=== PATIENT | female | born 1975 | race Caucasian/White ===

== ENCOUNTER → 2018-10-12 | Outpatient (CLI) | payer BC ==
[~2018-10-12] MED LIST: AMOX-355 PO; ESCT10T PO; HYDR1TAB PO; PRD20T PO; YAZ PO
--- NOTE | 2018-10-13 08:56 | Diagnostic Imaging Report ---
INDICATION: Routine screening. COMPARISON: 08/03/2017. TECHNIQUE: 2D and 3D bilateral screening mammography was performed with CAD. FINDINGS: Both breasts are heterogeneously dense, limiting the sensitivity of mammography. There is an area of density in the inferior medial aspect of the right breast at posterior depth which appears more prominent than on the prior study. This may represent superimposed tissue but additional views are recommended. The left breast is unremarkable. No suspicious microcalcifications are seen. The axillae are unremarkable. IMPRESSION: Right breast density. Additional views are recommended for further evaluation. ACR BI-RADS Category 0: Incomplete. (Needs additional imaging evaluation). Result letter will be mailed to the patient. Note: At least 10% of breast cancer is not imaged by mammography. Dictated by: Dictated on workstation # [id number]
== END ==
LOC: RAD 10:25
PROVIDERS: ATTEND Nurse Practitioner Primary Care
DX: Z12.31 Encounter for screening mammogram for malignant neoplasm of breast (principal)
CPT/HCPCS: 77067

== ENCOUNTER → 2018-10-26 | Outpatient (CLI) | payer BC ==
--- NOTE | 2018-10-26 18:57 | Diagnostic Imaging Report ---
INDICATION: Right breast density. Patient presents for additional views. COMPARISON: Correlation is made with recent screening study from 10/12/2018. TECHNIQUE: Unilateral right 2D and 3D diagnostic mammography was performed including spot compression CC and ML views as well as conventional 90 degree lateral view. The current study was also evaluated with a Computer Aided Detection (CAD) system. FINDINGS: Additional views fail to demonstrate a discrete mass. Area of density in the lower-inner right breast shows normal dispersion and most likely represents superimposed tissue. No suspicious calcifications are seen. IMPRESSION: Additional views fail to demonstrate a discrete mass. The patient may return to routine annual screening mammography. ACR BI-RADS Category 1: Negative. Result letter will be mailed to the patient. Note: At least 10% of breast cancer is not imaged by mammography. Dictated by: Dictated on workstation # [id number]
== END ==
LOC: RAD 08:15
PROVIDERS: ATTEND Nurse Practitioner Primary Care
DX: R92.2 Inconclusive mammogram (principal)

== ENCOUNTER 2019-12-29 11:38 | Emergency (ER) | payer BC, OTHER ==
[~2019-12-29] VITALS: Ht 165 cm; Wt 70.0 kg
--- OUTSIDE RECORDS SUMMARY | 2019-12-29 11:43 | XMS REPORT ---
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 4 92663794 Problem Menopausal vasomotor syndrome N95.1 Active 304222690 Problem Seasonal allergic rhinitis due to pollen J30.1 Active 69042552 Problem Mixed stress and urge urinary incontinence N39.46 Active 734928214 ALLERGIES No Information ENCOUNTERS Encounter Location Date Diagnosis [facility] [address] [id number] Feb, [facility] [address] [address] Jan, [facility] [address] [address] December, [facility] [address] [place] [id number] [place] [address] [phone] December, Dental examination Z01.20 [facility] [address] [place] [id number] [place] [address] December, 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 ; R ecurrent UTI N39.0 and Menopausal vasomotor syndrome N95.1 [facility] [address] [address] Nov, [facility] [address] [place] [id number] [place] [phone] Nov, Folliculitis L73.9 and Acute right otitis media H66.91 [facility] [address] [place] [id number] [address] [place] [phone] 29 Oct, 2018 [place] [address] [address] [facility] [id number] [place] [address] 18 Oct, 2018 Abnormal mammogram R92.8 [place] [address] [address] [facility] [id number] [address] [place] [phone] 15 Oct, 2018 Abnormal mammogram R92.8 [place] [address] [place] [id number] [place] [address] 14 Oct, 2018 [place] [address] [facility] [id number] [address] [place] [phone] Oct, Screening for STDs (sexually transmitted diseases) Z11.3 and Screening for breast cancer Z12.[address] [facility] [address] [address] Aug, Acute non-recurrent pansinus itis J01.[address] [facility] [place] [address] [address] Jun, [facility] [address] [address] Jun, Dysuria R30.0 ; Urinary trac t infection without hematuria, site unspecified N39.0 and Bronchitis J40 [place] [id number] [place] [phone] Jun, Acute vaginitis N76.0 ; Mode rate episode of recurrent major depressive disorder F33.1 and Seasonal allergic rhinitis due to pollen J30.1 [place] [address] [address] [facility] [id number] [address] [place] [address] May, Exposure to herpes simplex v irus (HSV) Z20.828 [facility] [place] [address] [address] [facility] [id number] [address] [place] [address] May, Exposure to herpes simplex v irus (HSV) Z20.828 and Dysuria R30.0 [facility] [place] [address] [address] Apr, Folliculitis L73.9 [place] [address] [address] Feb, Moderate episode of recurren t major depressive disorder F33.1 and Seasonal allergic rhinitis due to pollen J30.1 [facility] [place] [address] [address] December, Acute swimmer''s ear of both sides H60.333 [place] [address] [address] Nov, [place] [address] [address] Nov, Mixed stress and urge urinar y incontinence N39.46 [place] [address] [address] Nov, Moderate episode of recurren t major depressive disorder F33.1 ; Seasonal allergic rhinitis due to pollen J30.1 ; Overweight (BMI 25.0-29.9) E66.3 and Fatigue, unspecified type R53.83 [place] [address] [address] Nov, Moderate episode of recurren t major depressive disorder F33.1 ; Acute non-recurrent maxillary sinusitis J01.00 ; Fatigue, unspecified type R53.83 and Dysuria R30.0 [place] [address] [address] Oct, [place] [address] [address] Sep, Moderate episode of recurren t major depressive disorder F33.1 ; Seasonal allergic rhinitis due to pollen J30.1 and Overweight (BMI 25.0-29.9) E66.[address] [facility] [place] [address] [address] Aug, Myalgia M79.1 [facility] [address] [address] Jul, Moderate episode of recurren t major depressive disorder F33.1 ; Acute non-recurrent frontal sinusitis J01.10 and Overweight (BMI 25.0-29.9) E66.[address] [address] Jun, Acute cystitis with hematuri a N30.01 [place] [address] [address] Jun, [address] [address] Jun, Acute cystitis with hematuri a N30.01 [facility] [address] [id number] Jun, Dental examination Z01.[address] [address] May, Candidiasis of female genita leena B37.3 [facility] [address] [address] May, Acute cystitis N30.00 [facility] [address] [address] May, Dysuria R30.0 [facility] [address] [place] [address] Mar, Acute cystitis without hemat uria N30.00 and Dysuria R30.0 [facility] [address] [address] Feb, Right arm pain M79.601 [facility] [address] [address] December, Acute nasopharyngitis (commo n cold) J00 [facility] [address] [id number] [address] [place] [phone] Nov, Dental examination Z01.20 [facility] [address] [id number] [address] [place] [phone] Sep, Encounter for dental examina tion Z01.20 [facility] [address] [facility] [id number] [address] [place] [address] Jun, Lower abdominal pain R10.30 and Screening for STD sexually transmitted disease Z11.3 [facility] [address] [place] [id number] [place] [address] May, [facility] [address] [facility] [id number] [place] [address] May, Dysuria R30.0 ; Acute non-re current frontal sinusitis J01.10 and Acute cystitis with hematuria N30.01 [facility] [address] [id number] [address] [place] [phone] Mar, Dental examination Z01.20 [facility] [address] [facility] [id number] [address] [place] [phone] Oct, Encounter for dental examina tion Z01.20 IMMUNIZATIONS No Known Immunizations SOCIAL HISTORY Never Assessed REASON FOR VISIT Requesting medication PLAN OF CARE VITAL SIGNS MEDICATIONS Medication Instructions Dosage Frequency Start Date End Date Duration S tatus Valacyclovir HCl 500 mg Orally Once a day 1 tablet 24h Oct, 90 days Active RESULTS No Results PROCEDURES No Known procedures INSTRUCTIONS MEDICATIONS ADMINISTERED No Known Medications MEDICAL (GENERAL) HISTORY Type Description Date Medical History HTN Medical History folliculitis Medical History Moderate episode of recurrent major depr essive disorder Medical History Seasonal allergic rhinitis due to pollen Medical History Mixed stress and urge urinary incontinen ce Medical History HSV-2 seropositive Surgical History Caesarean Surgical History Hysterectomy 2008 Surgical History Cholecystectomy 2011 Surgical History Sinus 2013 Hospitalization History Hospitalization for surgery only
--- OUTSIDE RECORDS SUMMARY | 2019-12-29 11:43 | XMS REPORT ---
Author Author Paula HOU Organization [facility] Address [address] [place] [address] Care Team Providers Care Basketball Coach Name Role Phone BOBBY HOU Unavailable PROBLEMS Type Condition ICD9-CM Code ZXC22-EU Code Onset Dates Condition S tatus SNOMED Code Problem Mixed stress and urge urinary incontinence N39.46 Active 376984798 Problem Seasonal allergic rhinitis due to pollen J30.1 Active 44233898 Problem Moderate episode of recurrent major depressive disorder F33.1 Active 409486751 ALLERGIES Substance Reaction Event Type Date Status Hydrocodone-Acetaminophen itching Drug Allergy December, Ac tive Fluarix Unknown Drug Allergy December, Active ENCOUNTERS Encounter Location Date Diagnosis [facility] [address] [place] [id number] [place] [address] Feb, Moderate episode of recurren t major depressive disorder F33.1 and Seasonal allergic rhinitis due to pollen J30.1 [facility] [address] [place] [id number] [place] [address] December, Acute swimmer''s ear of both sides H60.333 [place] [address] [address] [place] [id number] [place] [address] Nov, [facility] [address] [place] [id number] [place] [address] Nov, Mixed stress and urge urinar y incontinence N39.46 [place] [address] [address] Nov, Moderate episode of recurren t major depressive disorder F33.1 ; Seasonal allergic rhinitis due to pollen J30.1 ; Overweight (BMI 25.0-29.9) E66.3 and Fatigue, unspecified type R53.83 [place] [address] [address] Nov, Moderate episode of recurren t major depressive disorder F33.1 ; Acute non-recurrent maxillary sinusitis J01.00 ; Fatigue, unspecified type R53.83 and Dysuria R30.0 [place] [address] [address] [place] [id number] [place] [address] Oct, [place] [address] [address] Sep, Moderate episode of recurren t major depressive disorder F33.1 ; Seasonal allergic rhinitis due to pollen J30.1 and Overweight (BMI 25.0-29.9) E66.3 [facility] [place] [address] [address] Aug, Myalgia M79.1 [place] [address] [address] Jul, Moderate episode of recurren t major depressive disorder F33.1 ; Acute non-recurrent frontal sinusitis J01.10 and Overweight (BMI 25.0-29.9) E66.3 [place] [address] [address] 21 Jun, 2017 Acute cystitis with hematuri a N30.01 [place] [address] [address] Jun, [place] [address] [address] 13 Jun, 2017 Acute cystitis with hematuri a N30.01 [facility] [address] [id number] [address] [place] [address] [id number] 08 Jun, 2017 Dental examination Z01.20 [place] [address] [address] [place] [id number] [address] [place] [phone] 17 May, 2017 Candidiasis of female genita leena B37.3 [facility] [address] [place] [address] May, Acute cystitis N30.00 [facility] [address] [place], [place] [address] [place] [address] May, Dysuria R30.0 [facility] [address] [place], [place] [address] [place] [address] Mar, Acute cystitis without hemat uria N30.00 and Dysuria R30.0 [facility] [address] [place] [address] [place] [address] Feb, Right arm pain M79.601 [facility] [address] [place] [address] [place] [address] December, Acute nasopharyngitis (commo n cold) J00 [facility] [id number] [place] [address] [phone] Nov, Dental examination Z01.20 [facility] [address] [place] [phone] Sep, Encounter for dental examina tion Z01.20 [facility] [address] [place] [phone] Jun, Lower abdominal pain R10.30 and Screening for STD sexually transmitted disease Z11.3 [facility] [address] [place] [phone] May, [facility] [address] [place] [address] May, Dysuria R30.0 ; Acute non-re current frontal sinusitis J01.10 and Acute cystitis with hematuria N30.01 [facility] [address] [id number] [address] [place] [phone] Mar, Dental examination Z01.20 [facility] [address] [id number] [address] [place] [address] [id number] Oct, Encounter for dental examina tion Z01.20 IMMUNIZATIONS No Known Immunizations SOCIAL HISTORY Never Assessed REASON FOR VISIT ear pain bilaterally for 4 days...worse the past 2 days. [place] swimming. [email or web address] PLAN OF CARE Activity Details Follow Up prn Reason: VITAL SIGNS Height 66 in 2017-12-31 Weight 161.6 lbs 2017-12-31 Temperature 98.4 degrees Fahrenheit 2017-12-31 Heart Rate 66 bpm 2017-12-31 Respiratory Rate 20 2017-12-31 BMI 26.08 kg/m2 2017-12-31 Blood pressure systolic 130 mmHg 2017-12-31 Blood pressure diastolic 80 mmHg 2017-12-31 MEDICATIONS Medication Instructions Dosage Frequency Start Date End Date Duration S tatus Probiotic Daily Active Cortisporin 3.5-52272-9 Otic Three times a day 4 drops into affecte d ear 8h December, 07 days Active Fexofenadine HCl 60 MG Orally Twice a day 1 tablet as needed 12h Not-Taking Multi Complete Active Estradiol 2 MG Orally Once a day 1 tablet 24h Active Fluoxetine 10 mg Orally Once a day 1 capsule in the morning 24h Nov, 30 day(s) Active Cyclobenzaprine HCl 5 mg Orally Three times a day PRn 1-2 tablet as needed Aug, Not-Taking Spironolactone 25 MG Orally Twice a day 1 tablet 12h Jul, 90 days Active RESULTS No Results PROCEDURES No Known procedures INSTRUCTIONS MEDICATIONS ADMINISTERED No Known Medications MEDICAL (GENERAL) HISTORY Type Description Date Medical History HTN Surgical History Caesarean Surgical History Hysterectomy 2008 Surgical History Cholecystectomy 2010 Surgical History Sinus 2012 Hospitalization History Hospitalization for surgery only
--- OUTSIDE RECORDS SUMMARY | 2019-12-29 11:43 | XMS REPORT ---
Author Author Paula MUNIZ Organization [facility] Address [address] [place] [address] Care Team Providers Care Hardwood Floor Finisher Name Role Phone OVIDIO MUNIZ Unavailable PROBLEMS Type Condition ICD9-CM Code FNL19-KL Code Onset Dates Condition S tatus SNOMED Code Problem Mixed stress and urge urinary incontinence N39.46 Active 331903494 Problem Seasonal allergic rhinitis due to pollen J30.1 Active 71528848 Problem Moderate episode of recurrent major depressive disorder F33.1 Active 047170955 ALLERGIES Substance Reaction Event Type Date Status Hydrocodone-Acetaminophen itching Drug Allergy Apr, Ac tive Fluarix Unknown Drug Allergy Apr, Active ENCOUNTERS Encounter Location Date Diagnosis [facility] [address] [place] [id number] [place] [address] Apr, Folliculitis L73.9 [facility] [address] [place] [id number] [address] [place] [address] Feb, Moderate episode of recurren t major depressive disorder F33.1 and Seasonal allergic rhinitis due to pollen J30.1 [facility] [address] [place] [id number] [place] [address] December, Acute swimmer''s ear of both sides H60.333 [facility] [address] [facility] [id number] [address] [place] [address] Nov, [facility] [address] [place] [id number] [place] [address] Nov, Mixed stress and urge urinar y incontinence N39.46 [facility] [address] [place] [id number] [address] [place] [address] Nov, Moderate episode of recurren t major depressive disorder F33.1 ; Seasonal allergic rhinitis due to pollen J30.1 ; Overweight (BMI 25.0-29.9) E66.3 and Fatigue, unspecified type R53.83 [facility] [address] [address] Nov, Moderate episode of recurren t major depressive disorder F33.1 ; Acute non-recurrent maxillary sinusitis J01.00 ; Fatigue, unspecified type R53.83 and Dysuria R30.0 [facility] [address] [address] Oct, [facility] [address] [address] Sep, Moderate episode of recurren t major depressive disorder F33.1 ; Seasonal allergic rhinitis due to pollen J30.1 and Overweight (BMI 25.0-29.9) E66.3 [facility] [address] [place] [id number] [place] [address] Aug, Myalgia M79.1 [facility] [address] [address] Jul, Moderate episode of recurren t major depressive disorder F33.1 ; Acute non-recurrent frontal sinusitis J01.10 and Overweight (BMI 25.0-29.9) E66.3 [place] [address] [address] Jun, Acute cystitis with hematuri a N30.01 [facility] [address] [place] [id number] [place] [address] Jun, [facility] [address] [place] [id number] [place] [address] 13 Jun, 2017 Acute cystitis with hematuri a N30.01 [facility] [address] [id number] [address] [place] [address] [id number] 08 Jun, 2017 Dental examination Z01.20 [facility] [address] [place] [address] [address] May, Candidiasis of female genita leena B37.3 [facility] [address] [place] [address] May, Acute cystitis N30.00 [facility] [address] [place] [address] May, Dysuria R30.0 [facility] [address] [place] [address] Mar, Acute cystitis without hemat uria N30.00 and Dysuria R30.0 [facility] [address] [place] [address] Feb, Right arm pain M79.601 [facility] [address] [place] [address] December, Acute nasopharyngitis (commo n cold) J00 [facility] [address] [id number] Nov, Dental examination Z01.20 [facility] [address] [id number] Sep, Encounter for dental examina tion Z01.20 [facility] [address] [place] [address] Jun, Lower abdominal pain R10.30 and Screening for STD sexually transmitted disease Z11.3 [facility] [address] [place] [phone] May, [facility] [address] [place] [address] May, Dysuria R30.0 ; Acute non-re current frontal sinusitis J01.10 and Acute cystitis with hematuria N30.01 [facility] [address] [place] [address] [id number] Mar, Dental examination Z01.20 [facility] [address] [id number] [address] [place] [phone] Oct, Encounter for dental examina tion Z01.20 IMMUNIZATIONS No Known Immunizations SOCIAL HISTORY Never Assessed REASON FOR VISIT bumps on head-patient has been diagnosed with folliculitis and stopped taking he r medicine and is having an outbreak on the back of her head. She usually takes amoxiclave and would like to get some.--ALDAIR Miramontes PLAN OF CARE Activity Details Follow Up 04/28 wIleana Calvo Reason :chronic med refills VITAL SIGNS Height 66 in 2018-04-25 Weight 153 lbs 2018-04-25 Temperature 99.5 degrees Fahrenheit 2018-04-25 Heart Rate 68 bpm 2018-04-25 Respiratory Rate 20 2018-04-25 BMI 24.69 kg/m2 2018-04-25 Blood pressure systolic 98 mmHg 2018-04-25 Blood pressure diastolic 70 mmHg 2018-04-25 MEDICATIONS Medication Instructions Dosage Frequency Start Date End Date Duration S tatus Probiotic Daily Active Amoxicillin-Pot Clavulanate 875-125 MG Orally every 12 hrs 1 tablet 12h Apr, Apr, 10 day(s) Active Fluoxetine 10 mg Orally Once a day 1 capsule in the morning 24h Nov, 90 days Active Spironolactone 25 MG Orally Twice a day 1 tablet 12h Jul, 90 days Active Multi Complete Active Fexofenadine HCl 60 MG Orally Twice a day 1 tablet as needed 12h Active Estradiol 2 MG Orally Once a day 1 tablet 24h Active RESULTS No Results PROCEDURES No Known procedures INSTRUCTIONS MEDICATIONS ADMINISTERED No Known Medications MEDICAL (GENERAL) HISTORY Type Description Date Medical History HTN Medical History folliculitis Surgical History Caesarean Surgical History Hysterectomy 2008 Surgical History Cholecystectomy 2010 Surgical History Sinus 2013 Hospitalization History Hospitalization for surgery only
--- OUTSIDE RECORDS SUMMARY | 2019-12-29 11:43 | XMS REPORT ---
Author Author Puala QUARLES Organization [facility] Address [address] [place] [address] Care Team Providers Care Director Of Front Office Name Role Phone WILLAM PARVIN Unavailable PROBLEMS Type Condition ICD9-CM Code CFE61-CA Code Onset Dates Condition S tatus SNOMED Code Problem Mixed stress and urge urinary incontinence N39.46 Active 067297870 Problem Seasonal allergic rhinitis due to pollen J30.1 Active 97867006 Problem Moderate episode of recurrent major depressive disorder F33.1 Active 768504616 ALLERGIES Substance Reaction Event Type Date Status Hydrocodone-Acetaminophen itching Drug Allergy Feb, Ac tive Fluarix Unknown Drug Allergy Feb, Active ENCOUNTERS Encounter Location Date Diagnosis [place] [address] [place] [id number] [address] [place] [address] Feb, Moderate episode of recurren t major depressive disorder F33.1 and Seasonal allergic rhinitis due to pollen J30.1 [facility] [address] [place] [id number] [address] [place] [phone] December, Acute swimmer''s ear of both sides H60.333 [place] [address] [place] [id number] [address] [place] [address] Nov, [facility] [address] [place] [id number] [address] [place] [address] Nov, Mixed stress and urge urinar y incontinence N39.46 [place] [address] [place] [id number] [address] [place] [address] Nov, Moderate episode of recurren t major depressive disorder F33.1 ; Seasonal allergic rhinitis due to pollen J30.1 ; Overweight (BMI 25.0-29.9) E66.3 and Fatigue, unspecified type R53.83 [place] [address] [place] [id number] [place] [address] Nov, Moderate episode of recurren t major depressive disorder F33.1 ; Acute non-recurrent maxillary sinusitis J01.00 ; Fatigue, unspecified type R53.83 and Dysuria R30.0 [place] [address] [place] [id number] [place] [address] Oct, [place] [address] [address] Sep, Moderate episode of recurren t major depressive disorder F33.1 ; Seasonal allergic rhinitis due to pollen J30.1 and Overweight (BMI 25.0-29.9) E66.3 [facility] [place] [address] [address] Aug, Myalgia M79.1 [place] [address] [address] Jul, Moderate episode of recurren t major depressive disorder F33.1 ; Acute non-recurrent frontal sinusitis J01.10 and Overweight (BMI 25.0-29.9) E66.3 [place] [address] [address] 21 Jun, 2017 Acute cystitis with hematuri a N30.01 [place] [address] [place] [id number] [place] [address] Jun, [place] [address] [address] 13 Jun, 2017 Acute cystitis with hematuri a N30.01 [facility] [address] [id number] [address] [place] [address] [id number] 08 Jun, 2017 Dental examination Z01.20 [place] [address] [place] [id number] [address] [place] [address] 17 May, 2017 Candidiasis of female genita leena B37.3 [facility] [address] [place] [id number] [place] [address] May, Acute cystitis N30.00 [facility] [address] [place] [address] May, Dysuria R30.0 [facility] [address] [place], [place] [address] [place] [address] Mar, Acute cystitis without hemat uria N30.00 and Dysuria R30.0 [facility] [address] [place], [place] [address] [place] [address] Feb, Right arm pain M79.601 [facility] [address] [place] [place] [address] December, Acute nasopharyngitis (commo n cold) J00 [facility] [address] [place] [address] [phone] Nov, Dental examination Z01.20 [facility] [address] [id number] Sep, Encounter for dental examina tion Z01.20 [facility] [address] [place] [place] [phone] Jun, Lower abdominal pain R10.30 and Screening for STD sexually transmitted disease Z11.3 [facility] [address] [place] [place] [address] May, [facility] [address] [place] [place] [address] May, Dysuria R30.0 ; Acute non-re current frontal sinusitis J01.10 and Acute cystitis with hematuria N30.01 [facility] [address] [id number] [address] [place] [address] [phone] Mar, Dental examination Z01.20 [facility] [address] [id number] [address] [place] [address] [phone] Oct, Encounter for dental examina tion Z01.20 IMMUNIZATIONS No Known Immunizations SOCIAL HISTORY Never Assessed REASON FOR VISIT Depression fu -- my[facility]le [facility]odge PLAN OF CARE Activity Details Follow Up 6 Months, prn Reason:CHM/Dep ression VITAL SIGNS Height 66 in 2018-02-17 Weight 158.0 lbs 2018-02-17 Temperature 98.7 degrees Fahrenheit 2018-02-17 Heart Rate 70 bpm 2018-02-17 Respiratory Rate 18 2018-02-17 BMI 25.50 kg/m2 2018-02-17 Blood pressure systolic 120 mmHg 2018-02-17 Blood pressure diastolic 76 mmHg 2018-02-17 MEDICATIONS Medication Instructions Dosage Frequency Start Date End Date Duration S tatus Estradiol 2 MG Orally Once a day 1 tablet 24h Active Multi Complete Active Spironolactone 25 MG Orally Twice a day 1 tablet 12h Jul, 90 days Active Fluoxetine 10 mg Orally Once a day 1 capsule in the morning 24h Nov, 90 days Active Fexofenadine HCl 60 MG Orally Twice a day 1 tablet as needed 12h Active Probiotic Daily Active RESULTS No Results PROCEDURES No Known procedures INSTRUCTIONS MEDICATIONS ADMINISTERED No Known Medications MEDICAL (GENERAL) HISTORY Type Description Date Medical History HTN Surgical History Caesarean Surgical History Hysterectomy 2008 Surgical History Cholecystectomy 2010 Surgical History Sinus 2013 Hospitalization History Hospitalization for surgery only
--- OUTSIDE RECORDS SUMMARY | 2019-12-29 11:43 | XMS REPORT ---
Author Author Paula GUSTAFSON Organization [facility] Address [address] [place] [address] Care Team Providers Care Desulphuring Operator Name Role Phone SJ DANILO Unavailable PROBLEMS Type Condition ICD9-CM Code JGU53-KZ Code Onset Dates Condition S tatus SNOMED Code Problem Mixed stress and urge urinary incontinence N39.46 Active 808940737 Problem Seasonal allergic rhinitis due to pollen J30.1 Active 51490354 Problem Moderate episode of recurrent major depressive disorder F33.1 Active 916718038 ALLERGIES Substance Reaction Event Type Date Status Hydrocodone-Acetaminophen itching Drug Allergy Jun, Ac tive Fluarix Unknown Drug Allergy Jun, Active ENCOUNTERS Encounter Location Date Diagnosis [facility] [address] [address] Jun, [facility] [place] [address] [address] 18 Jun, 2018 Dysuria R30.0 ; Urinary trac t infection without hematuria, site unspecified N39.0 and Bronchitis J40 [address] [address] 14 Jun, 2018 Acute vaginitis N76.0 ; Mode rate episode of recurrent major depressive disorder F33.1 and Seasonal allergic rhinitis due to pollen J30.1 [facility] [address] [place] [id number] [address] [place] [phone] May, Exposure to herpes simplex v irus (HSV) Z20.828 [facility] [address] [place] [id number] [address] [place] [phone] May, Exposure to herpes simplex v irus (HSV) Z20.828 and Dysuria R30.0 [facility] [address] [address] Apr, Folliculitis L73.9 [place] [address] [address] Feb, Moderate episode of recurren t major depressive disorder F33.1 and Seasonal allergic rhinitis due to pollen J30.1 [facility] [place] [address] [address] December, Acute swimmer''s ear of both sides H60.333 [place] [address] [address] Nov, [place] [address] [address] Nov, Mixed stress and urge urinar y incontinence N39.46 [place] [address] [address] Nov, Moderate episode of recurren t major depressive disorder F33.1 ; Seasonal allergic rhinitis due to pollen J30.1 ; Overweight (BMI 25.0-29.9) E66.3 and Fatigue, unspecified type R53.83 [place] [address] [address] Nov, Moderate episode of recurren t major depressive disorder F33.1 ; Acute non-recurrent maxillary sinusitis J01.00 ; Fatigue, unspecified type R53.83 and Dysuria R30.0 [place] [address] [address] Oct, [place] [address] [address] Sep, Moderate episode of recurren t major depressive disorder F33.1 ; Seasonal allergic rhinitis due to pollen J30.1 and Overweight (BMI 25.0-29.9) E66.3 [facility] IN [facility] [address] [address] Aug, Myalgia M79.1 [place] [address] [address] Jul, Moderate episode of recurren t major depressive disorder F33.1 ; Acute non-recurrent frontal sinusitis J01.10 and Overweight (BMI 25.0-29.9) E66.3 [place] [address] [address] Jun, Acute cystitis with hematuri a N30.01 [place] [address] [address] Jun, [address] [address] Jun, Acute cystitis with hematuri a N30.01 [facility] [address] [id number] Jun, 2017 Dental examination Z01.20 [place] [address] [address] 17 May, 2017 Candidiasis of female genita leena B37.3 [facility] [address] [place] [address] May, Acute cystitis N30.00 [facility] [address] [place] [address] May, Dysuria R30.0 [facility] [address] [place] [address] Mar, Acute cystitis without hemat uria N30.00 and Dysuria R30.0 [facility] [address] [place] [address] Feb, Right arm pain M79.601 [facility] [address] [place] [address] December, Acute nasopharyngitis (commo n cold) J00 [facility] [address] [id number] [address] [place] [address] [phone] Nov, Dental examination Z01.20 [facility] [address] [id number] [address] [place] [address] [phone] Sep, Encounter for dental examina tion Z01.20 [facility] [address] [facility] [id number] [address] [place] [phone] Jun, Lower abdominal pain R10.30 and Screening for STD sexually transmitted disease Z11.3 [facility] [address] [place], [place] [address] [place] [phone] May, [facility] [address] [place] [id number] [place] [phone] May, Dysuria R30.0 ; Acute non-re current frontal sinusitis J01.10 and Acute cystitis with hematuria N30.01 [facility] [address] [id number] [address] [place] [address] [phone] Mar, Dental examination Z01.20 [facility] 924 [address] [facility] [id number] [address] [place] [address] [phone] Oct, Encounter for dental examina tion Z01.20 IMMUNIZATIONS No Known Immunizations SOCIAL HISTORY Never Assessed REASON FOR VISIT sinus infection/uti symptoms started 3 days ago JStrasserRN PLAN OF CARE Activity Details Follow Up prn Reason: VITAL SIGNS Height 66 in 2018-06-25 Weight 150.0 lbs 2018-06-25 Temperature 98.8 degrees Fahrenheit 2018-06-25 Heart Rate 80 bpm 2018-06-25 Respiratory Rate 20 2018-06-25 BMI 24.21 kg/m2 2018-06-25 Blood pressure systolic 116 mmHg 2018-06-25 Blood pressure diastolic 74 mmHg 2018-06-25 MEDICATIONS Medication Instructions Dosage Frequency Start Date End Date Duration Kehinde masters Spironolactone 25 MG Orally Twice a day 1 tablet 12h 22 Jul, 2018 90 days Active Fluconazole 150 MG Orally every 72hr 1 tablet Jun, 6 days Active Estradiol 2 MG Orally Once a day 1 tablet 24h Active Fluoxetine 10 mg Orally Once a day 1 capsule in the morning 24h Nov, Active Fluconazole 150 MG Orally one time may repeat in 3 days if needed 1 tablet Jun, 2 doses Active Probiotic Daily Active Sulfamethoxazole-Trimethoprim 800-160 MG Orally Twice a day 1 table t 12h Jun, 7 days Active PredniSONE 20 mg Orally Once a day 1 tablet 24h Jun, 5 days Active Multi Complete Active Azo Tabs 95 MG Orally Three times a day 2 tablets after meals 8h 2 day(s) Active Fexofenadine HCl 60 MG Orally Twice a day 1 tablet as needed 12h Active RESULTS No Results PROCEDURES Procedure Date Ordered Result Body Site URINALYSIS, AUTO, W/O SCOPE Jun 25, 2018 URINE CULTURE/COLONY COUNT Jun 25, 2018 INSTRUCTIONS MEDICATIONS ADMINISTERED No Known Medications MEDICAL (GENERAL) HISTORY Type Description Date Medical History HTN Medical History folliculitis Surgical History Caesarean 1998/2001 Surgical History Hysterectomy 2008 Surgical History Cholecystectomy 2010 Surgical History Sinus 2013 Hospitalization History Hospitalization for surgery only
--- OUTSIDE RECORDS SUMMARY | 2019-12-29 11:43 | XMS REPORT ---
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 4 79753334 Problem Menopausal vasomotor syndrome N95.1 Active 739272475 Problem Seasonal allergic rhinitis due to pollen J30.1 Active 73341787 Problem Mixed stress and urge urinary incontinence N39.46 Active 810669035 ALLERGIES No Information ENCOUNTERS Encounter Location Date Diagnosis [facility] [address] [address] Jan, [facility] [address] [address] December, [facility] [address] [place] [id number] [address] [place] [address] [phone] December, Dental examination Z01.20 [facility] [address] [address] December, 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 ; R ecurrent UTI N39.0 and Menopausal vasomotor syndrome N95.1 [facility] [address] [place] [id number] [address] [place] [address] Nov, [facility] [address] [address] Nov, Folliculitis L73.9 and Acute right otitis media H66.91 [facility] [address] [place] [id number] [address] [place] [address] Oct, [facility] [address] [address] 18 Oct, 2018 Abnormal mammogram R92.8 [place] [address] [address] 15 Oct, 2018 Abnormal mammogram R92.8 [place] [address] [address] 14 Oct, 2018 [place] [address] [address] Oct, Screening for STDs (sexually transmitted diseases) Z11.3 and Screening for breast cancer Z12.31 [facility] [address] [address] Aug, Acute non-recurrent pansinus itis J01.[address] [address] Jun, [facility] [place] [address] [address] Jun, Dysuria R30.0 ; Urinary trac t infection without hematuria, site unspecified N39.0 and Bronchitis J40 [place] [address] [address] 14 Jun, 2018 Acute vaginitis N76.0 ; Mode rate episode of recurrent major depressive disorder F33.1 and Seasonal allergic rhinitis due to pollen J30.1 [place] [address] [address] May, Exposure to herpes simplex v irus (HSV) Z20.828 [facility] [place] [address] [address] May, Exposure to herpes simplex v irus (HSV) Z20.828 and Dysuria R30.0 [facility] [place] [address] [address] Apr, Folliculitis L73.9 [place] [address] [facility] [id number] [address] [place] [address] Feb, Moderate episode of recurren t major depressive disorder F33.1 and Seasonal allergic rhinitis due to pollen J30.1 [facility] [address] [facility] [id number] [address] [place] [address] December, Acute swimmer''s ear of both sides H60.333 [place] [address] [place] [id number] [address] [place] [address] Nov, [place] [address] [place] [id number] [place] [address] Nov, Mixed stress and urge urinar y incontinence N39.46 [place] [address] [place] [id number] [address] [place] [address] Nov, Moderate episode of recurren t major depressive disorder F33.1 ; Seasonal allergic rhinitis due to pollen J30.1 ; Overweight (BMI 25.0-29.9) E66.3 and Fatigue, unspecified type R53.83 [place] [address] [place] [id number] [address] [place] [address] Nov, Moderate episode of recurren t major depressive disorder F33.1 ; Acute non-recurrent maxillary sinusitis J01.00 ; Fatigue, unspecified type R53.83 and Dysuria R30.0 [place] [address] [place] [id number] [address] [place] [phone] Oct, [place] [address] [facility] [id number] [address] [place] [phone] Sep, Moderate episode of recurren t major depressive disorder F33.1 ; Seasonal allergic rhinitis due to pollen J30.1 and Overweight (BMI 25.0-29.9) E66.3 [facility] IN [facility] [address] [facility] [id number] [address] [place] [phone] Aug, Myalgia M79.1 [place] [address] [place] [id number] [address] [place] [address] Jul, Moderate episode of recurren t major depressive disorder F33.1 ; Acute non-recurrent frontal sinusitis J01.10 and Overweight (BMI 25.0-29.9) E66.3 [facility] [address] [place] [id number] [address] [place] [phone] Jun, Acute cystitis with hematuri a N30.01 [place] [address] [address] Jun, [place] [address] [address] Jun, Acute cystitis with hematuri a N30.01 [facility] [address] [place] [id number] [place] [address] [id number] Jun, 2017 Dental examination Z01.20 [place] [address] [address] May, Candidiasis of female genita leena B37.3 [facility] [address] [place] [id number] [place] [address] May, Acute cystitis N30.00 [facility] [place] [id number] [place] [address] May, Dysuria R30.0 [facility] [address] [place], [place] [address] [place] [address] Mar, Acute cystitis without hemat uria N30.00 and Dysuria R30.0 [facility] [address] [place] [id number] [address] [place] [address] Feb, Right arm pain M79.601 [facility] [address] [place], [place] [id number] [address] [place] [phone] December, Acute nasopharyngitis (commo n cold) J00 [facility] [address] [id number] [address] [place] [address] [phone] Nov, Dental examination Z01.20 [facility] [address] [facility] [id number] [address] [place] [address] [phone] Sep, Encounter for dental examina tion Z01.20 [facility] [address] [facility] [id number] [address] [place] [address] Jun, Lower abdominal pain R10.30 and Screening for STD sexually transmitted disease Z11.3 [facility] [address] [facility] [id number] [address] [place] [phone] May, [facility] [address] [facility] [id number] [address] [place] [address] May, Dysuria R30.0 ; Acute non-re current frontal sinusitis J01.10 and Acute cystitis with hematuria N30.01 [facility] [address] [facility] [id number] [address] [place] [address] [phone] Mar, Dental examination Z01.20 [facility] [address] [facility] [id number] [address] [place] [address] [phone] Oct, Encounter for dental examina tion Z01.20 IMMUNIZATIONS No Known Immunizations SOCIAL HISTORY Never Assessed REASON FOR VISIT Requests return call PLAN OF CARE VITAL SIGNS MEDICATIONS Unknown Medications RESULTS No Results PROCEDURES No Known procedures INSTRUCTIONS MEDICATIONS ADMINISTERED No Known Medications MEDICAL (GENERAL) HISTORY Type Description Date Medical History HTN Medical History folliculitis Medical History Moderate episode of recurrent major depr essive disorder Medical History Seasonal allergic rhinitis due to pollen Medical History Mixed stress and urge urinary incontinen ce Medical History HSV-2 seropositive Surgical History Caesarean 1998/2001 Surgical History Hysterectomy 2008 Surgical History Cholecystectomy 2011 Surgical History Sinus 2013 Hospitalization History Hospitalization for surgery only
--- OUTSIDE RECORDS SUMMARY | 2019-12-29 11:43 | XMS REPORT ---
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 4 90723647 Problem Menopausal vasomotor syndrome N95.1 Active 929759297 Problem Seasonal allergic rhinitis due to pollen J30.1 Active 63861214 Problem Mixed stress and urge urinary incontinence N39.46 Active 297205935 ALLERGIES Substance Reaction Event Type Date Status Hydrocodone-Acetaminophen itching Drug Allergy Oct, Ac tive Fluarix Unknown Drug Allergy Oct, Active ENCOUNTERS Encounter Location Date Diagnosis [facility] [address] [place] [address] December, 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 ; R ecurrent UTI N39.0 and Menopausal vasomotor syndrome N95.1 [facility] [address] [facility] [id number] [address] [place] [address] Nov, [facility] [address] [facility] [id number] [address] [place] [address] Nov, Folliculitis L73.9 and Acute right otitis media H66.91 [facility] [address] [facility] [id number] [address] [place] [address] Oct, [facility] [address] [facility] [id number] [address] [place] [address] Oct, Abnormal mammogram R92.8 [facility] [address] [facility] [id number] [address] [place] [address] Oct, Abnormal mammogram R92.8 [place] [address] [address] 14 Oct, 2018 [place] [address] [address] Oct, Screening for STDs (sexually transmitted diseases) Z11.3 and Screening for breast cancer Z12.31 [facility] [address] [address] Aug, Acute non-recurrent pansinus itis J01.40 [facility] [place] [address] [address] Jun, [facility] [address] [address] Jun, Dysuria R30.0 ; Urinary trac t infection without hematuria, site unspecified N39.0 and Bronchitis J40 [address] [address] Jun, Acute vaginitis N76.0 ; Mode rate episode of recurrent major depressive disorder F33.1 and Seasonal allergic rhinitis due to pollen J30.1 [place] [address] [address] May, Exposure to herpes simplex v irus (HSV) Z20.828 [facility] [place] [address] [address] May, Exposure to herpes simplex v irus (HSV) Z20.828 and Dysuria R30.0 [facility] [place] [address] [address] Apr, Folliculitis L73.9 [place] [address] [address] Feb, Moderate episode of recurren t major depressive disorder F33.1 and Seasonal allergic rhinitis due to pollen J30.1 [facility] [place] [address] [address] December, Acute swimmer''s ear of both sides H60.333 [place] [address] [address] Nov, [place] [address] [address] Nov, Mixed stress and urge urinar y incontinence N39.46 [place] [address] [address] Nov, Moderate episode of recurren t major depressive disorder F33.1 ; Seasonal allergic rhinitis due to pollen J30.1 ; Overweight (BMI 25.0-29.9) E66.3 and Fatigue, unspecified type R53.83 [place] [address] [address] Nov, Moderate episode of recurren t major depressive disorder F33.1 ; Acute non-recurrent maxillary sinusitis J01.00 ; Fatigue, unspecified type R53.83 and Dysuria R30.0 [place] [address] [address] Oct, [place] [address] [address] Sep, Moderate episode of recurren t major depressive disorder F33.1 ; Seasonal allergic rhinitis due to pollen J30.1 and Overweight (BMI 25.0-29.9) E66.3 [facility] [address] [address] Aug, Myalgia M79.1 [place] [address] [address] Jul, Moderate episode of recurren t major depressive disorder F33.1 ; Acute non-recurrent frontal sinusitis J01.10 and Overweight (BMI 25.0-29.9) E66.3 [place] [address] [address] Jun, Acute cystitis with hematuri a N30.01 [facility] [address] [facility] [id number] [address] [place] [address] Jun, [facility] [address] [facility] [id number] [address] [place] [address] Jun, Acute cystitis with hematuri a N30.01 [facility] [address] [facility] [id number] [place] [id number] Jun, Dental examination Z01.20 [facility] [address] [facility] [id number] [address] [place] [address] 17 May, 2017 Candidiasis of female genita leena B37.3 [facility] [address] [place] [id number] [address] [place] [address] May, Acute cystitis N30.00 [facility] [address] [place] [id number] [place] [address] May, Dysuria R30.0 [facility] [address] [place] [id number] [address] [place] [address] Mar, Acute cystitis without hemat uria N30.00 and Dysuria R30.0 [facility] [address] [place] [id number] [address] [place] [address] Feb, Right arm pain M79.601 [facility] [address] [place] [id number] [address] [place] [address] December, Acute nasopharyngitis (commo n cold) J00 [facility] [address] [id number] [address] [place] [address] [id number] Nov, Dental examination Z01.20 [facility] [address] [id number] [address] [place] [phone] Sep, Encounter for dental examina tion Z01.20 [facility] [address] [facility] [id number] [address] [place] [address] Jun, Lower abdominal pain R10.30 and Screening for STD sexually transmitted disease Z11.3 [facility] [address] [facility] [id number] [address] [place] [address] May, [facility] [address] [facility] [id number] [address] [place] [address] May, Dysuria R30.0 ; Acute non-re current frontal sinusitis J01.10 and Acute cystitis with hematuria N30.01 [facility] [address] [facility] [id number] [address] [place] [address] [phone] Mar, Dental examination Z01.20 [facility] [address] [facility] [id number] [address] [place] [address] [phone] Oct, Encounter for dental examina tion Z01.20 IMMUNIZATIONS No Known Immunizations SOCIAL HISTORY Never Assessed REASON FOR VISIT breast exam and STD testing- ALDAIR Banuelos PLAN OF CARE Activity Details Follow Up 1 Year Reason:wwe VITAL SIGNS Height 66 in 2018-10-06 Weight 152.6 lbs 2018-10-06 Temperature 99.1 degrees Fahrenheit 2018-10-06 Heart Rate 82 bpm 2018-10-06 Respiratory Rate 18 2018-10-06 BMI 24.63 kg/m2 2018-10-06 Blood pressure systolic 102 mmHg 2018-10-06 Blood pressure diastolic 58 mmHg 2018-10-06 MEDICATIONS Medication Instructions Dosage Frequency Start Date End Date Duration S tatus Multi Complete Active Probiotic Daily Active Fexofenadine HCl 60 MG Orally Twice a day 1 tablet as needed 12h Active RESULTS No Results PROCEDURES Procedure Date Ordered Result Body Site VENIPUNCT, ROUTINE* October 06, 2018 HERPES SIMPLEX TEST October 06, 2018 HERPES SIMPLEX TYPE 2 October 06, 2018 Bacterial Vaginosis In House October 06, 2018 TRICHOMONAS ASSAY W/OPTIC October 06, 2018 BLOOD SEROLOGY, QUALITATIVE October 06, 2018 HIV-1 AG W/HIV-1 & HIV-2 AB October 06, 2018 N.GONORRHOEAE, DNA, AMP PROB October 06, 2018 CHYLMD TRACH, DNA, AMP PROBE October 06, 2018 INSTRUCTIONS MEDICATIONS ADMINISTERED No Known Medications [...]
--- OUTSIDE RECORDS SUMMARY | 2019-12-29 11:43 | XMS REPORT ---
Author Author Paula SANCHEZ Organization [facility] Address [address] [place] [address] Care Team Providers Care Vba Programmer Name Role Phone LAURA MADDY Unavailable PROBLEMS Type Condition ICD9-CM Code [id number] Code Onset Dates Condition S tatus SNOMED Code Problem Mixed stress and urge urinary incontinence N39.46 Active 778023944 Problem Seasonal allergic rhinitis due to pollen J30.1 Active 73186702 Problem Moderate episode of recurrent major depressive disorder F33.1 Active 003243303 ALLERGIES Substance Reaction Event Type Date Status Hydrocodone-Acetaminophen itching Drug Allergy May, Ac tive Fluarix Unknown Drug Allergy May, Active ENCOUNTERS Encounter Location Date Diagnosis [place] [address] [address] May, Exposure to herpes simplex v irus (HSV) Z20.828 [facility] [address] [address] May, Exposure to herpes simplex v irus (HSV) Z20.828 and Dysuria R30.0 [facility] [address] [address] Apr, Folliculitis L73.9 [facility] [address] [address] Feb, Moderate episode of recurren t major depressive disorder F33.1 and Seasonal allergic rhinitis due to pollen J30.1 [facility] [address] [place] [id number] [address] [place] [address] December, Acute swimmer''s ear of both sides H60.333 [place] [address] [address] Nov, [facility] [address] [place] [id number] [address] [place] [address] Nov, Mixed stress and urge urinar y incontinence N39.46 [place] [address] [address] [facility] [id number] [address] [place] [address] Nov, Moderate episode of recurren t major depressive disorder F33.1 ; Seasonal allergic rhinitis due to pollen J30.1 ; Overweight (BMI 25.0-29.9) E66.3 and Fatigue, unspecified type R53.83 [place] [address] [address] [place] [id number] [address] [place] [address] Nov, Moderate episode of recurren t major depressive disorder F33.1 ; Acute non-recurrent maxillary sinusitis J01.00 ; Fatigue, unspecified type R53.83 and Dysuria R30.0 [place] [address] [address] [place] [id number] [address] [place] [address] Oct, [place] [address] [address] [place] [id number] [address] [place] [address] Sep, Moderate episode of recurren t major depressive disorder F33.1 ; Seasonal allergic rhinitis due to pollen J30.1 and Overweight (BMI 25.0-29.9) E66.3 [facility] [address] [place] [id number] [address] [place] [phone] Aug, Myalgia M79.1 [place] [address] [address] [place] [id number] [address] [place] [address] Jul, Moderate episode of recurren t major depressive disorder F33.1 ; Acute non-recurrent frontal sinusitis J01.10 and Overweight (BMI 25.0-29.9) E66.3 [place] [address] [address] [place] [id number] [address] [place] [address] Jun, Acute cystitis with hematuri a N30.01 [place] [address] [address] [place] [id number] [address] [place] [address] Jun, [facility] [address] [place] [id number] [address] [place] [address] Jun, Acute cystitis with hematuri a N30.01 [facility] [address] [facility] [id number] [address] [place] [phone] Jun, Dental examination Z01.20 [facility] [address] [place] [id number] [address] [place] [phone] May, Candidiasis of female genita leena B37.3 [facility] [address] [place] [id number] [place] [phone] May, Acute cystitis N30.00 [facility] [address] [place], [place] [address] [place] [phone] May, Dysuria R30.0 [facility] [address] [place] [address] Mar, Acute cystitis without hemat uria N30.00 and Dysuria R30.0 [facility] [address] [place] [address] Feb, Right arm pain M79.601 [facility] [address] [place], [place] [address] [place] [phone] December, Acute nasopharyngitis (commo n cold) J00 [facility] [address] [place] [id number] [address] [place] [address] [phone] Nov, Dental examination Z01.20 [facility] [address] [place] [phone] Sep, Encounter for dental examina tion Z01.20 [facility] [address] [place] [id number] [place] [phone] Jun, Lower abdominal pain R10.30 and Screening for STD sexually transmitted disease Z11.3 [facility] [address] [place], [place] [id number] [address] [place] [phone] May, [facility] [address] [facility] [id number] [address] [place] [address] May, Dysuria R30.0 ; Acute non-re current frontal sinusitis J01.10 and Acute cystitis with hematuria N30.01 [facility] [address] [id number] [place] [id number] Mar, Dental examination Z01.20 [facility] [address] [id number] [place] [id number] Oct, Encounter for dental examina tion Z01.20 IMMUNIZATIONS No Known Immunizations SOCIAL HISTORY Never Assessed REASON FOR VISIT Yeast infection/ UTI- recently on abx Mary, Pt possibly exposed to herpes - does not have open sores but has the pain PLAN OF CARE Activity Details Follow Up if not improving with PCP or reg follow up Reason: VITAL SIGNS Height 66 in 2018-05-27 Weight 151.2 lbs 2018-05-27 Temperature 99.0 degrees Fahrenheit 2018-05-27 Heart Rate 68 bpm 2018-05-27 Respiratory Rate 2018-05-27 BMI 24.40 kg/m2 2018-05-27 Blood pressure systolic 100 mmHg 2018-05-27 Blood pressure diastolic 70 mmHg 2018-05-27 MEDICATIONS Medication Instructions Dosage Frequency Start Date End Date Duration S sonam Fexofenadine HCl 60 MG Orally Twice a day 1 tablet as needed 12h Active Estradiol 2 MG Orally Once a day 1 tablet 24h Active Valacyclovir HCl 1 GM Orally twice a day 1 tablet 12h May, 018 May, 7 days Active Spironolactone 25 MG Orally Twice a day 1 tablet 12h Jul, 90 days Active Multi Complete Active Fluoxetine 10 mg Orally Once a day 1 capsule in the morning 24h Nov, 90 days Active Probiotic Daily Active RESULTS No Results PROCEDURES No Known procedures INSTRUCTIONS MEDICATIONS ADMINISTERED No Known Medications MEDICAL (GENERAL) HISTORY Type Description Date Medical History HTN Medical History folliculitis Surgical History Caesarean Surgical History Hysterectomy 2008 Surgical History Cholecystectomy 2010 Surgical History Sinus 2013 Hospitalization History Hospitalization for surgery only
--- OUTSIDE RECORDS SUMMARY | 2019-12-29 11:43 | XMS REPORT ---
Author Author Paula MANE [facility] Address [address] [place] [address] Care Team Providers Care Drilling Field Specialist Name Role Phone JUAN MANUEL MANE Unavailable PROBLEMS Type Condition ICD9-CM Code JWV82-IT Code Onset Dates Condition S tatus SNOMED Code Problem Mixed stress and urge urinary incontinence N39.46 Active 864160201 Problem Seasonal allergic rhinitis due to pollen J30.1 Active 13723100 Problem Moderate episode of recurrent major depressive disorder F33.1 Active 091249496 ALLERGIES No Information ENCOUNTERS Encounter Location Date Diagnosis [facility] [address] [address] Jun, [facility] [address] [address] 18 Jun, 2018 Dysuria R30.0 ; Urinary trac t infection without hematuria, site unspecified N39.0 and Bronchitis J40 [facility] [address] [place] [id number] [address] [place] [address] 14 Jun, 2018 Acute vaginitis N76.0 ; Mode rate episode of recurrent major depressive disorder F33.1 and Seasonal allergic rhinitis due to pollen J30.1 [facility] [address] [place] [id number] [address] [place] [address] May, Exposure to herpes simplex v irus (HSV) Z20.828 [facility] [place] [address] [place] [id number] [place] [address] May, Exposure to herpes simplex v irus (HSV) Z20.828 and Dysuria R30.0 [facility] [address] [place] [id number] [address] [place] [address] Apr, Folliculitis L73.9 [place] [address] N [facility] [id number] [address] [place] [phone] Feb, Moderate episode of recurren t major depressive disorder F33.1 and Seasonal allergic rhinitis due to pollen J30.1 [facility] [address] [facility] [id number] [address] [place] [address] December, Acute swimmer''s ear of both sides H60.333 [place] [address] [address] [facility] [id number] [address] [place] [phone] Nov, [place] [address] N [facility] [id number] [address] [place] [phone] Nov, Mixed stress and urge urinar y incontinence N39.46 [place] [address] N [place] [id number] [address] [place] [address] Nov, Moderate episode of recurren t major depressive disorder F33.1 ; Seasonal allergic rhinitis due to pollen J30.1 ; Overweight (BMI 25.0-29.9) E66.3 and Fatigue, unspecified type R53.83 [place] [address] N [place] [id number] [address] [place] [address] Nov, Moderate episode of recurren t major depressive disorder F33.1 ; Acute non-recurrent maxillary sinusitis J01.00 ; Fatigue, unspecified type R53.83 and Dysuria R30.0 [place] [address] [address] [place] [id number] [address] [place] [address] Oct, [place] [address] [address] [facility] [id number] [address] [place] [phone] Sep, Moderate episode of recurren t major depressive disorder F33.1 ; Seasonal allergic rhinitis due to pollen J30.1 and Overweight (BMI 25.0-29.9) E66.3 [facility] IN [facility] [address] [facility] [id number] [address] [place] [phone] Aug, Myalgia M79.1 [place] [address] N [place] [id number] [address] [place] [phone] Jul, Moderate episode of recurren t major depressive disorder F33.1 ; Acute non-recurrent frontal sinusitis J01.10 and Overweight (BMI 25.0-29.9) E66.3 [facility] [address] [place] [id number] [address] [place] [address] Jun, Acute cystitis with hematuri a N30.01 [facility] [address] [address] Jun, [facility] [address] [address] 13 Jun, 2017 Acute cystitis with hematuri a N30.01 [facility] [id number] [place] [address] [id number] 08 Jun, 2017 Dental examination Z01.[address] [address] 17 May, 2017 Candidiasis of female genita leena B37.3 [facility] [address] [place] [address] May, Acute cystitis N30.00 [facility] [address] [place] [id number] [place] [address] May, Dysuria R30.0 [facility] [address] [place] [address] Mar, Acute cystitis without hemat uria N30.00 and Dysuria R30.0 [facility] [address] [place] [id number] [address] [place] [address] Feb, Right arm pain M79.601 [facility] [address] [place], [place] [id number] [address] [place] [address] December, Acute nasopharyngitis (commo n cold) J00 [facility] [address] [id number] [address] [place] [address] [phone] Nov, Dental examination Z01.20 [facility] [address] [id number] [address] [place] [address] [id number] Sep, Encounter for dental examina tion Z01.20 [facility] [address] [facility] [id number] [address] [place] [phone] Jun, Lower abdominal pain R10.30 and Screening for STD sexually transmitted disease Z11.3 [facility] [address] [facility] [id number] [address] [place] [phone] May, [facility] [address] [facility] [id number] [address] [place] [phone] May, Dysuria R30.0 ; Acute non-re current frontal sinusitis J01.10 and Acute cystitis with hematuria N30.01 [facility] [address] [place] [id number] [address] [place] [address] [id number] Mar, Dental examination Z01.20 [facility] [address] [id number] [place] [phone] Oct, Encounter for dental examina tion Z01.20 IMMUNIZATIONS No Known Immunizations SOCIAL HISTORY Never Assessed REASON FOR VISIT UTI symptoms after being seen in the [facility] for this same complaint et taking all o f the antibiotic she was given. visited with ALEX Serrano after reviewing pts ur ine cs. pt is on wrong antibiotic. new antibiotic called into [facility] per pts request. pt was brought back to room 1 in the [facility] to discuss all of this. pt kit balized understanding. pooja marcobid 100mg 1PO BID X 10 days...#20...no r efills under ALEX Serrano. this was called into [facility] by this RN PLAN OF CARE VITAL SIGNS MEDICATIONS Medication Instructions Dosage Frequency Start Date End Date Duration S miltonus Spironolactone 25 MG Orally Twice a day 1 tablet 12h Jul, 90 days Active Multi Complete Active Estradiol 2 MG Orally Once a day 1 tablet 24h Active Sulfamethoxazole-Trimethoprim 800-160 MG Orally Twice a day 1 table t 12h Jun, 7 days Not-Taking Probiotic Daily Active Fluconazole 150 MG Orally every 72hr 1 tablet Jun, 6 days Active Fluconazole 150 MG Orally one time may repeat in 3 days if needed 1 tablet Jun, 2 doses Active Fexofenadine HCl 60 MG Orally Twice a day 1 tablet as needed 12h Active Fluoxetine 10 mg Orally Once a day 1 capsule in the morning 24h Nov, Active PredniSONE 20 mg Orally Once a day 1 tablet 24h Jun, 5 days Active Azo Tabs 95 MG Orally Three times a day 2 tablets after meals 8h 2 day(s) Active RESULTS No Results PROCEDURES No Known procedures INSTRUCTIONS MEDICATIONS ADMINISTERED No Known Medications MEDICAL (GENERAL) HISTORY Type Description Date Medical History HTN Medical History folliculitis Surgical History Caesarean Surgical History Hysterectomy 2008 Surgical History Cholecystectomy 2010 Surgical History Sinus 2012 Hospitalization History Hospitalization for surgery only
--- OUTSIDE RECORDS SUMMARY | 2019-12-29 11:44 | XMS REPORT ---
Author Author Paula QUARLES Organization [facility] Address [address] [place] [address] Care Team Providers Care Cigar Binder Name Role Phone PARVIN QUARLES Unavailable PROBLEMS Type Condition ICD9-CM Code [id number] Code Onset Dates Condition S tatus SNOMED Code Problem Mixed stress and urge urinary incontinence N39.46 Active 597121477 Problem Seasonal allergic rhinitis due to pollen J30.1 Active 18460517 Problem Moderate episode of recurrent major depressive disorder F33.1 Active 502946829 ALLERGIES No Information ENCOUNTERS Encounter Location Date Diagnosis [facility] [address] [facility] [id number] [address] [place] [phone] Feb, Moderate episode of recurren t major depressive disorder F33.1 and Seasonal allergic rhinitis due to pollen J30.1 [facility] [address] [facility] [id number] [address] [place] [phone] December, Acute swimmer''s ear of both sides H60.333 [facility] [address] [facility] [id number] [address] [place] [phone] Nov, [facility] [address] [facility] [id number] [address] [place] [phone] Nov, Mixed stress and urge urinar y incontinence N39.46 [facility] [address] [facility] [id number] [address] [place] [phone] Nov, Moderate episode of recurren t major depressive disorder F33.1 ; Seasonal allergic rhinitis due to pollen J30.1 ; Overweight (BMI 25.0-29.9) E66.3 and Fatigue, unspecified type R53.83 [facility] [address] [facility] [id number] [address] [place] [phone] Nov, Moderate episode of recurren t major depressive disorder F33.1 ; Acute non-recurrent maxillary sinusitis J01.00 ; Fatigue, unspecified type R53.83 and Dysuria R30.0 [facility] [address] [facility] [id number] [address] [place] [phone] Oct, [facility] [address] [facility] [id number] [address] [place] [phone] Sep, Moderate episode of recurren t major depressive disorder F33.1 ; Seasonal allergic rhinitis due to pollen J30.1 and Overweight (BMI 25.0-29.9) E66.3 [facility] [address] [facility] [id number] [address] [place] [phone] Aug, [facility] [address] [facility] [id number] [address] [place] [phone] Aug, Myalgia M79.1 [facility] [address] [place] [id number] [address] [place] [phone] Jul, Moderate episode of recurren t major depressive disorder F33.1 ; Acute non-recurrent frontal sinusitis J01.10 and Overweight (BMI 25.0-29.9) E66.3 [facility] [address] [facility] [id number] [address] [place] [phone] Jun, [facility] [address] [place] [id number] [address] [place] [phone] Jun, Acute cystitis with hematuri a N30.01 [facility] [address] [facility] [id number] [address] [place] [phone] Jun, [facility] [address] [facility] [id number] [address] [place] [phone] 13 Jun, 2017 Acute cystitis with hematuri a N30.01 [facility] [address] [id number] [address] [place] [address] [phone] 08 Jun, 2017 Dental examination Z01.20 [facility] [address] [facility] [id number] [address] [place] [phone] May, Candidiasis of female genita leena B37.3 [facility] [address] [place], [place] [id number] [address] [place] [phone] May, Acute cystitis N30.00 [facility] [address] [place] [id number] [place] [phone] May, Dysuria R30.0 [facility] [address] [place] [id number] [place] [phone] Mar, Acute cystitis without hemat uria N30.00 and Dysuria R30.0 [facility] [address] [place] [id number] [place] [phone] Feb, Right arm pain M79.601 [facility] [address] [place] [id number] [place] [phone] December, Acute nasopharyngitis (commo n cold) J00 [facility] [address] [id number] Nov, Dental examination Z01.20 [facility] [address] [id number] Sep, Encounter for dental examina tion Z01.20 [facility] [address] [place], [place] [id number] [address] [place] [phone] Jun, Lower abdominal pain R10.30 and Screening for STD sexually transmitted disease Z11.3 [facility] [address] [place], [place] [id number] [address] [place] [phone] May, [facility] [address] [place] [id number] [place] [phone] May, Dysuria R30.0 ; Acute non-re current frontal sinusitis J01.10 and Acute cystitis with hematuria N30.01 [facility] [address] [id number] [address] [place] [phone] Mar, Dental examination Z01.20 [facility] [address] [facility] [id number] [address] [place] [phone] Oct, Encounter for dental examina tion Z01.20 IMMUNIZATIONS No Known Immunizations SOCIAL HISTORY Never Assessed REASON FOR VISIT Requests return call PLAN OF CARE VITAL SIGNS MEDICATIONS Medication Instructions Dosage Frequency Start Date End Date Duration S sonam Spironolactone 25 MG Orally Twice a day [...]
--- OUTSIDE RECORDS SUMMARY | 2019-12-29 11:44 | XMS REPORT ---
Author Paula Haji eClinical[employer] Address Unknown Phone Unavailable Care Team Providers Care Diabetes Nurse Name Role Phone JENNIFER WESTFALL CP Unavailable Allergies, Adverse Reactions, Alerts Substance Reaction Event Type N.K.D.A. Info Not Available Non Drug Allergy Problems Problem Type Condition Code Onset Dates Condition Statu s Problem Encounter for dental examination Z01.20 Active Assessment Dysuria R30.0 Active Problem Dental examination Z01.20 Active Assessment Acute non-recurrent frontal sinusitis J01.10 Active Assessment Acute cystitis with hematuria N30.01 Active Medications Medication Code System Code Instructions Start Date End Date Status Dosage Multi Complete [facility] [address] not d efined Pyridium [facility] [address]-95 200 mg Orally Three times a day O ct 2015May 31, 2016 1 tablet after meals Estradiol [facility] [address]-14 not defi leonel Probiotic Daily [facility] [address] not defined Ceftin [facility] [address]-16 250 MG Orally Twice a day May 29, 2016 Jun 08, 2016 1 tablet Procedures Procedure Coding System Code Date Office Visit, Est Pt., Level 3 CPT-[address] 2015 URINALYSIS, AUTO, W/O SCOPE CPT-4 56060 May 29, 2016 Vital Signs Date/Time: May 29, 2016 Blood Pressure Systolic 98 mmHg Cardiac Monitoring Heart Rate 76 bpm Weight 153.5 lbs Blood Pressure Diastolic 68 mmHg Results Name Result Date Reference Range Unit Abnormali ty Flag UA LONG DIP (IN HOUSE) ----HERNAN 1+ 20160529 ----NIT negative 20160529 ----Exp date 20160529 ----Lot # [id number] ----SG >1.030 20160529 ----KET negative 20160529 ----ZULEMA negative 20160529 ----GLU negative 20160529 ----Odor no 20160529 ----pH 7.0 20160529 ----BLO 2+ 20160529 ----URO 0.2 20160529 ----Protein 1+ 20160529 ----Lot # [id number] ----Exp date 20160529 ----Clarity clear 20160529 ----Color yellow 20160529 Summary Purpose eClinicalWorks Submission
--- OUTSIDE RECORDS SUMMARY | 2019-12-29 11:44 | XMS REPORT ---
Author Author Paula QUARLES Organization [facility] Address [address] [place] [address] Care Team Providers Care Second Shift Supervisor Name Role Phone PARVIN QUARLES Unavailable PROBLEMS Type Condition ICD9-CM Code MSC19-AY Code Onset Dates Condition S tatus SNOMED Code Problem Mixed stress and urge urinary incontinence N39.46 Active 158788273 Problem Seasonal allergic rhinitis due to pollen J30.1 Active 86088357 Problem Moderate episode of recurrent major depressive disorder F33.1 Active 532534557 ALLERGIES No Information ENCOUNTERS Encounter Location Date Diagnosis [facility] [address] [facility] [id number] [address] [place] [phone] Feb, Moderate episode of recurren t major depressive disorder F33.1 and Seasonal allergic rhinitis due to pollen J30.1 [facility] [address] [facility] [id number] [address] [place] [phone] December, Acute swimmer''s ear of both sides H60.333 [facility] [address] [facility] [id number] [address] [place] [phone] Nov, [facility] [address] [facility] [id number] [address] [place] [phone] Nov, Mixed stress and urge urinar y incontinence N39.46 [facility] [address] [facility] [id number] [address] [place] [phone] Nov, Moderate episode of recurren t major depressive disorder F33.1 ; Seasonal allergic rhinitis due to pollen J30.1 ; Overweight (BMI 25.0-29.9) E66.3 and Fatigue, unspecified type R53.83 [facility] [address] [facility] [id number] [address] [place] [phone] Nov, Moderate episode of recurren t major depressive disorder F33.1 ; Acute non-recurrent maxillary sinusitis J01.00 ; Fatigue, unspecified type R53.83 and Dysuria R30.0 [place] [address] [facility] [id number] [address] [place] [phone] Oct, [place] [address] [phone] Sep, Moderate episode of recurren t major depressive disorder F33.1 ; Seasonal allergic rhinitis due to pollen J30.1 and Overweight (BMI 25.0-29.9) E66.3 [facility] [place] [address] [phone] Aug, Myalgia M79.1 [place] [address] [facility] [id number] [place] [phone] Jul, Moderate episode of recurren t major depressive disorder F33.1 ; Acute non-recurrent frontal sinusitis J01.10 and Overweight (BMI 25.0-29.9) E66.3 [place] [address] [place] [phone] Jun, Acute cystitis with hematuri a N30.01 [place] [address] [place] [id number] [place] [phone] Jun, [place] [address] [phone] 13 Jun, 2017 Acute cystitis with hematuri a N30.01 [facility] [address] [id number] [address] [place] [phone] 08 Jun, 2017 Dental examination Z01.20 [place] [address] [place] [id number] [address] [place] [phone] 17 May, 2017 Candidiasis of female genita leena B37.3 [facility] [place] [address] [facility] [id number] [address] [place] [phone] 16 May, 2017 Acute cystitis N30.00 [facility] [address] [facility] [id number] [address] [place] [phone] May, Dysuria R30.0 [facility] [address] [place], [place] [address] [place] [phone] Mar, Acute cystitis without hemat uria N30.00 and Dysuria R30.0 [facility] [address] [place], [place] [address] [place] [phone] Feb, Right arm pain M79.601 [facility] [address] [place], [place] [address] [place] [phone] December, Acute nasopharyngitis (commo n cold) J00 [facility] [address] [place] [phone] Nov, Dental examination Z01.20 [facility] [address] [id number] Sep, Encounter for dental examina tion Z01.20 [facility] [address] [place] [phone] Jun, Lower abdominal pain R10.30 and Screening for STD sexually transmitted disease Z11.3 [facility] [address] [place], [place] [address] [place] [phone] May, [facility] [address] [place] [phone] May, Dysuria R30.0 ; Acute non-re current frontal sinusitis J01.10 and Acute cystitis with hematuria N30.01 [facility] [id number] [place] [phone] Mar, Dental examination Z01.20 [facility] [id number] [place] [phone] Oct, Encounter for dental examina tion Z01.20 IMMUNIZATIONS No Known Immunizations SOCIAL HISTORY Never Assessed REASON FOR VISIT Referral PLAN OF CARE VITAL SIGNS MEDICATIONS No Known Medications RESULTS No Results PROCEDURES No Known procedures INSTRUCTIONS MEDICATIONS ADMINISTERED No Known Medications MEDICAL (GENERAL) HISTORY Type Description Date Medical History HTN Surgical History Caesarean Surgical History Hysterectomy 2008 Surgical History Cholecystectomy 2010 Surgical History Sinus 2012 Hospitalization History Hospitalization for surgery only
--- OUTSIDE RECORDS SUMMARY | 2019-12-29 11:44 | XMS REPORT | Continuity of Care Document ---
Demographics Preferred Language Unknown Marital Status Unknown Temple Affiliation Unknown Race Unknown Ethnic Group Unknown Author Organization Unknown Address Unknown Phone Unavailable Allergies Active Description Code Type Severity Reaction Onset Reported/Identified Relationship to Patient Clinical Status Yes NKANo Known Allergies NKA Miscellaneous Allergy Unknown N/A 10/12/2006 Medications There is no data. Problems Date Dx Coded Attending Type Code Diagnosis Diagnosed By 10/22/2018 JUAN MANUEL MANE DATA ACQUISITION TECHNICIAN Ot Z12.31 ENCNTR SCREEN MAMMOGRAM FOR MALIGNANT NE 10/28/2018 JUAN MANUEL MANE DATA ACQUISITION TECHNICIAN Ot R92.2 INCONCLUSIVE MAMMOGRAM 11/13/2018 JUAN MANUEL MANE APRN Ot R92.2 INCONCLUSIVE MAMMOGRAM Procedures There is no data. Results Test Result Range Genital Culture, Routine - 06/13/16 09:3 4 Genital Culture, Routine Note Pap Lb, rfx HPV ASCU - 06/13/16 09:35 DIAGNOSIS: Comment Specimen adequacy: Comment Clinician provided ICD10: Comment Performed by: Comment QC reviewed by: Comment . . Note: Comment . Comment Urine Culture, Routine - 05/19/17 16:15 Urine Culture, Routine Note CULTURE, URINE - 05/19/17 16:15 Urine Culture, Routine Final report NRG Result 1 Escherichia coli NRG Antimicrobial Susceptibility N RG CULTURE, URINE - 06/20/17 11:52 CULTURE, URINE, ROUTINE SEE NOTE NRG VITAMIN D, 25-H - 11/16/17 08:29 VITAMIN D,25-OH,TOTAL,IA 44 ng/mL 30-10 0 CULTURE, URINE - 06/25/18 08:42 CULTURE, URINE, ROUTINE SEE NOTE NRG SYPHILIS (RPR W/ REFLEX CONFIRMATION) - 10/06/18 15:31 RPR (DX) W/REFL TITER AND CONFIRMATORY TESTING NON-REACTIVE NON-REACTIVE HSV 1/2 IGG,TYPE SPECIFIC AB HERPESELECT - 10/06/18 15:31 HSV 1 IGG, TYPE SPECIFIC AB 7.67 index N RG HSV 2 IGG, TYPE SPECIFIC AB 3.87 index N RG GC/CHLAMYDIA (SWAB OR URINE)-RAPID - 08/26 15:31 CHLAMYDIA TRACHOMATIS RNA, TMA NOT DETECTED NOT DETECTED NEISSERIA GONORRHOEAE RNA, TMA NOT DETECTED NOT DETECTED COMMENT NRG GC/CHLAMYDIA (SWAB OR URINE)-RAPID - 06/26 10:38 CHLAMYDIA TRACHOMATIS RNA, TMA NOT DETECTED NOT DETECTED NEISSERIA GONORRHOEAE RNA, TMA NOT DETECTED NOT DETECTED COMMENT NRG CULTURE, URINE - 06/18/19 10:38 CULTURE, URINE, ROUTINE SEE NOTE NRG Encounters ACCT No. Visit Date/Time Discharge Status Pt. Type Provider Facility Loc./Unit Complaint [id number] 05/21/2017 22:06:00 Document Registration [id number] 10/02/2019 10:30:00 10/02/2019 23:59:5 9 CLS Outpatient JUAN MANUEL MANE [facility] [id number] 06/17/2019 13:15:00 Document Registration [id number] 10/06/2018 15:00:00 Document Registration [id number] 06/25/2018 14:20:00 Document Registration [id number] 11/16/2017 08:20:00 Document Registration [id number] 06/20/2017 17:20:00 Document Registration [id number] 05/19/2017 16:00:00 Document Registration [id number] 06/16/2016 18:06:00 Document Registration [id number] 10/26/2018 08:15:00 019 23:59:59 CLS Outpatient JUAN MANUEL MANE APRN [facility] RAD ABNORMAL MAMMO [id number] 10/12/2018 10:25:00 019 23:59:59 CLS Outpatient JUAN MANUEL MANE APRN [facility] RAD SCREENING [id number] 06/17/2016 10:05:00 Document Registration
--- OUTSIDE RECORDS SUMMARY | 2019-12-29 11:44 | XMS REPORT ---
Author Paula Messer eClinicalWorks Address Unknown Phone Unavailable Care Team Providers Care Nurse Anesthetist Name Role Phone WALESKA DONG CP Unavailable Allergies, Adverse Reactions, Alerts Substance Reaction Event Type N.K.D.A. Info Not Available Non Drug Allergy Problems Problem Type Condition Code Onset Dates Condition Statu s Problem Encounter for dental examination Z01.20 Active Assessment Lower abdominal pain R10.30 Active Problem Dental examination Z01.20 Active Assessment Screening for STD (sexually transmitted disease) Z11.3 Active Medications Medication Code System Code Instructions Start Date End Date Status Dosage Estradiol [facility] [address]-91 not defi leonel Multi Complete [facility] [address] not d efined Probiotic Daily [facility] 65[address] not defined Procedures Procedure Coding System Code Date No Charge CPT-4 84493 Jun 13, 2016 TRICHOMONAS ASSAY W/OPTIC CPT-4 25974 Jun URINALYSIS, AUTO, W/O SCOPE CPT-4 20574 Jun 13, 2016 SPECIMEN HANDLING CPT-4 67655 Jun 13, 2016 PARADA VAG, DNA, DIR PROBE CPT-4 98939 Jun 13, 2016 Office Visit, Est Pt., Level 3 CPT-4 00385 N 2015 CULTURE, BACTERIA, OTHER CPT-4 21065 Jun 13, 2016 Vital Signs Date/Time: Jun 13, 2016 Blood Pressure Systolic 106 mmHg Cardiac Monitoring Heart Rate 76 bpm Weight 156.6 lbs Blood Pressure Diastolic 70 mmHg Results Name Result Date Reference Range Unit Abnormali ty Flag BACTERIAL VAGINOSIS (IN HOUSE) ----Lot # [id number] ----Exp date 20160613 ----RESULTS neg 20160613 ----Control + 20160613 TRICHOMONAS (IN HOUSE) ----TRICHOMONAS neg 20160613 ----Control + 20160613 ----Lot # [id number] ----Exp date 20160613 UA W/CULTURE IF INDICATED (IN HOUSE) ----ZULEMA neg 20160613 ----GLU neg 20160613 ----SG 1.025 20160613 ----KET 1+ 20160613 ----pH 6.5 20160613 ----Protein neg 20160613 ----BLO neg 20160613 ----HERNAN neg 20160613 ----Color dark yellow 20160613 ----Odor yes 20160613 ----Exp date 20160613 ----URO 0.2 20160613 ----NIT neg 20160613 ----Clarity slightly cloudy 20160613 ----Lot # [id number] Summary Purpose eClinicalWorks Submission
--- OUTSIDE RECORDS SUMMARY | 2019-12-29 11:44 | XMS REPORT ---
Author Author Paula Modi Organization [facility] [place] Address [address] [place] [address] Care Team Providers Care Produce Buyer Name Role Phone TRISTON Modi Unavailable PROBLEMS Type Condition ICD9-CM Code COF23-GT Code Onset Dates Condition S tatus SNOMED Code Problem Mixed stress and urge urinary incontinence N39.46 Active 560301516 Problem Seasonal allergic rhinitis due to pollen J30.1 Active 84189410 Problem Moderate episode of recurrent major depressive disorder F33.1 Active 669002527 ALLERGIES No Information ENCOUNTERS Encounter Location Date Diagnosis [facility] [address] [phone] Feb, [facility] [address] [place] [id number] [address] [place] [phone] December, Acute swimmer''s ear of both sides H60.333 [facility] [address] [place] [id number] [address] [place] [phone] Nov, [facility] [address] [place] [id number] [address] [place] [phone] Nov, Mixed stress and urge urinar y incontinence N39.46 [facility] [address] [place] [id number] [address] [place] [phone] Nov, Moderate episode of recurren t major depressive disorder F33.1 ; Seasonal allergic rhinitis due to pollen J30.1 ; Overweight (BMI 25.0-29.9) E66.3 and Fatigue, unspecified type R53.83 [facility] [address] [place] [id number] [address] [place] [phone] Nov, Moderate episode of recurren t major depressive disorder F33.1 ; Acute non-recurrent maxillary sinusitis J01.00 ; Fatigue, unspecified type R53.83 and Dysuria R30.0 [facility] [address] [place] [id number] [address] [place] [phone] Oct, [facility] [address] [facility] [id number] [place] [phone] Sep, Moderate episode of recurren t major depressive disorder F33.1 ; Seasonal allergic rhinitis due to pollen J30.1 and Overweight (BMI 25.0-29.9) E66.3 [facility] [address] [facility] [id number] [address] [place] [phone] Aug, [facility] [address] [place] [id number] [place] [phone] Aug, Myalgia M79.1 [facility] [address] [place] [id number] [place] [phone] Jul, Moderate episode of recurren t major depressive disorder F33.1 ; Acute non-recurrent frontal sinusitis J01.10 and Overweight (BMI 25.0-29.9) E66.3 [facility] [address] [place] [id number] [address] [place] [phone] Jun, [facility] [address] [place] [id number] [place] [phone] Jun, Acute cystitis with hematuri a N30.01 [facility] [address] [place] [id number] [address] [place] [phone] Jun, [facility] [address] [place] [id number] [address] [place] [phone] 13 Jun, 2017 Acute cystitis with hematuri a N30.01 [facility] [address] [facility] [id number] [address] [place] [address] [phone] 08 Jun, 2017 Dental examination Z01.20 [facility] [address] [place] [id number] [address] [place] [phone] 17 May, 2017 Candidiasis of female genita leena B37.3 [facility] [address] [facility] [id number] [address] [place] [phone] May, Acute cystitis N30.00 [facility] [address] [facility] [id number] [address] [place] [phone] May, Dysuria R30.0 [facility] [address] [place] [id number] [place] [phone] Mar, Acute cystitis without hemat uria N30.00 and Dysuria R30.0 [facility] [address] [place] [address] [id number] [place] [phone] Feb, Right arm pain M79.601 [facility] [address] [place] [id number] [place] [phone] December, Acute nasopharyngitis (commo n cold) J00 [facility] [address] [place] [phone] Nov, Dental examination Z01.20 [facility] [address] [id number] Sep, Encounter for dental examina tion Z01.20 [facility] [address] [place] [address] [id number] [place] [phone] Jun, Lower abdominal pain R10.30 and Screening for STD sexually transmitted disease Z11.3 [facility] [address] [place] [address] [id number] [place] [phone] May, [facility] [address] [place] [id number] [place] [phone] May, Dysuria R30.0 ; Acute non-re current frontal sinusitis J01.10 and Acute cystitis with hematuria N30.01 [facility] [address] [id number] [address] [place] [phone] Mar, Dental examination Z01.20 [facility] [id number] [place] [address] [id number] Oct, Encounter for dental examina tion Z01.20 IMMUNIZATIONS No Known Immunizations SOCIAL HISTORY Never Assessed REASON FOR VISIT Sinus Infection/Leg pain/hurts to sit,lay PLAN OF CARE Activity Details Follow Up prn Reason: VITAL SIGNS Height 66 in 2017-08-11 Weight 165.4 lbs 2017-08-11 Temperature 98.1 degrees Fahrenheit 2017-08-11 Heart Rate 74 bpm 2017-08-11 Respiratory Rate 16 2017-08-11 BMI 26.69 kg/m2 2017-08-11 Blood pressure systolic 114 mmHg 2017-08-11 Blood pressure diastolic 64 mmHg 2017-08-11 MEDICATIONS Medication Instructions Dosage Frequency Start Date End Date Duration S tatus Multi Complete Active Spironolactone 25 MG Orally Twice a day 1 tablet 12h Active Probiotic Daily Active Prozac 10 MG Orally Once a day 1 capsule in the morning 24h 28 D 2016 30 day(s) Active Estradiol Active Augmentin 875-125 MG Orally every 12 hrs 1 tablet 12h Jul, 017 Aug, 10 day(s) Active Cyclobenzaprine HCl 5 mg Orally Three times a day PRn 1-2 tablet as needed Aug, Active Fexofenadine HCl 60 MG Orally Twice a day 1 tablet as needed 12h Active Diflucan 150 MG Orally 1 tablet now and 1 tablet again in 7 days 1 tablet Jun, 10 days Not-Taking RESULTS No Results PROCEDURES No Known procedures INSTRUCTIONS MEDICATIONS ADMINISTERED No Known Medications MEDICAL (GENERAL) HISTORY Type Description Date Medical History HTN Surgical History Caesarean Surgical History Hysterectomy 2008 Surgical History Cholecystectomy 2010 Surgical History Sinus 2012 Hospitalization History Hospitalization for surgery only
--- OUTSIDE RECORDS SUMMARY | 2019-12-29 11:44 | XMS REPORT ---
Author Author Paula QUARLES Organization [facility] Address [address] [place] [address] Care Team Providers Care Adjunct Lecturer Name Role Phone PARVIN QUARLES Unavailable PROBLEMS Type Condition ICD9-CM Code MMA56-XE Code Onset Dates Condition S tatus SNOMED Code Problem Mixed stress and urge urinary incontinence N39.46 Active 268430126 Problem Seasonal allergic rhinitis due to pollen J30.1 Active 16131953 Problem Moderate episode of recurrent major depressive disorder F33.1 Active 275537497 ALLERGIES No Information ENCOUNTERS Encounter Location Date Diagnosis [facility] [address] [facility] [id number] [address] [place] [phone] Feb, Moderate episode of recurren t major depressive disorder F33.1 and Seasonal allergic rhinitis due to pollen J30.1 [facility] [address] [facility] [id number] [address] [place] [phone] December, Acute swimmer''s ear of both sides H60.333 [facility] [address] [facility] [id number] [address] [place] [phone] Nov, [facility] [address] [facility] [id number] [address] [place] [phone] Nov, Mixed stress and urge urinar y incontinence N39.46 [facility] [address] [facility] [id number] [address] [place] [phone] Nov, Moderate episode of recurren t major depressive disorder F33.1 ; Seasonal allergic rhinitis due to pollen J30.1 ; Overweight (BMI 25.0-29.9) E66.3 and Fatigue, unspecified type R53.83 [facility] [address] [facility] [id number] [address] [place] [phone] Nov, Moderate episode of recurren t major depressive disorder F33.1 ; Acute non-recurrent maxillary sinusitis J01.00 ; Fatigue, unspecified type R53.83 and Dysuria R30.0 [place] [address] [facility] [id number] [address] [place] [phone] Oct, [place] [address] [phone] Sep, Moderate episode of recurren t major depressive disorder F33.1 ; Seasonal allergic rhinitis due to pollen J30.1 and Overweight (BMI 25.0-29.9) E66.3 [facility] [place] [address] [phone] Aug, Myalgia M79.1 [place] [address] [facility] [id number] [place] [phone] Jul, Moderate episode of recurren t major depressive disorder F33.1 ; Acute non-recurrent frontal sinusitis J01.10 and Overweight (BMI 25.0-29.9) E66.3 [place] [address] [place] [phone] Jun, Acute cystitis with hematuri a N30.01 [place] [address] [place] [id number] [place] [phone] Jun, [place] [address] [phone] 13 Jun, 2017 Acute cystitis with hematuri a N30.01 [facility] [address] [id number] [address] [place] [address] [id number] 08 Jun, 2017 Dental examination Z01.20 [place] [address] [place] [id number] [address] [place] [phone] 17 May, 2017 Candidiasis of female genita leena B37.3 [facility] [place] [address] [facility] [id number] [address] [place] [phone] 16 May, 2017 Acute cystitis N30.00 [facility] [address] [place] [id number] [address] [place] [phone] May, Dysuria R30.0 [facility] [address] [place], [place] [id number] [place] [phone] Mar, Acute cystitis without hemat uria N30.00 and Dysuria R30.0 [facility] [address] [place], [place] [id number] [place] [phone] Feb, Right arm pain M79.601 [facility] [address] [place], [place] [id number] [place] [phone] December, Acute nasopharyngitis (commo n cold) J00 [facility] [address] [place] [phone] Nov, Dental examination Z01.20 [facility] [address] [id number] Sep, Encounter for dental examina tion Z01.20 [facility] [address] [place] [phone] Jun, Lower abdominal pain R10.30 and Screening for STD sexually transmitted disease Z11.3 [facility] [address] [place], [place] [id number] [place] [phone] May, [facility] [address] [place] [phone] May, Dysuria R30.0 ; Acute non-re current frontal sinusitis J01.10 and Acute cystitis with hematuria N30.01 [facility] [address] [id number] [place] [address] [phone] Mar, Dental examination Z01.20 [facility] [address] [id number] [place] [address] [phone] Oct, Encounter for dental examina tion Z01.20 IMMUNIZATIONS No Known Immunizations SOCIAL HISTORY Never Assessed REASON FOR VISIT medication refill PLAN OF CARE VITAL SIGNS MEDICATIONS Medication [...]
--- OUTSIDE RECORDS SUMMARY | 2019-12-29 11:44 | XMS REPORT ---
Author Author Paula QUARLES Organization [facility] Address [address] [place] [address] Care Team Providers Care Assembler Name Role Phone PARVIN QUARLES Unavailable PROBLEMS Type Condition ICD9-CM Code VYF24-HM Code Onset Dates Condition S tatus SNOMED Code Problem Mixed stress and urge urinary incontinence N39.46 Active 937681392 Problem Seasonal allergic rhinitis due to pollen J30.1 Active 66406785 Problem Moderate episode of recurrent major depressive disorder F33.1 Active 509548445 ALLERGIES No Information ENCOUNTERS Encounter Location Date Diagnosis [facility] [address] [facility] [id number] [address] [place] [phone] Feb, Moderate episode of recurren t major depressive disorder F33.1 and Seasonal allergic rhinitis due to pollen J30.1 [facility] IN [facility] [address] [facility] [id number] [address] [place] [phone] December, Acute swimmer''s ear of both sides H60.333 [facility] [address] [facility] [id number] [address] [place] [phone] Nov, [facility] [place] [address] [facility] [id number] [address] [place] [phone] Nov, Mixed stress and urge urinar y incontinence N39.46 [facility] [address] [facility] [id number] [address] [place] [phone] Nov, Moderate episode of recurren t major depressive disorder F33.1 ; Seasonal allergic rhinitis due to pollen J30.1 ; Overweight (BMI 25.0-29.9) E66.3 and Fatigue, unspecified type R53.83 [facility] [place] [address] [facility] [id number] [address] [place] [phone] Nov, Moderate episode of recurren t major depressive disorder F33.1 ; Acute non-recurrent maxillary sinusitis J01.00 ; Fatigue, unspecified type R53.83 and Dysuria R30.0 [place] [address] [facility] [id number] [address] [place] [phone] Oct, [place] [address] [phone] Sep, Moderate episode of recurren t major depressive disorder F33.1 ; Seasonal allergic rhinitis due to pollen J30.1 and Overweight (BMI 25.0-29.9) E66.3 [facility] [place] [address] [phone] Aug, Myalgia M79.1 [place] [address] [address] [facility] [id number] [place] [phone] Jul, Moderate episode of recurren t major depressive disorder F33.1 ; Acute non-recurrent frontal sinusitis J01.10 and Overweight (BMI 25.0-29.9) E66.3 [place] [address] [place] [phone] Jun, Acute cystitis with hematuri a N30.01 [place] [address] [place] [id number] [place] [phone] Jun, [place] [address] [phone] 13 Jun, 2017 Acute cystitis with hematuri a N30.01 [facility] [address] [id number] [address] [place] [address] [id number] 08 Jun, 2017 Dental examination Z01.20 [place] [address] [address] [place] [id number] [address] [place] [phone] 17 May, 2017 Candidiasis of female genita leena B37.3 [facility] [place] [address] [address] [facility] [id number] [address] [place] [phone] 16 May, 2017 Acute cystitis N30.00 [facility] [address] [facility] [id number] [address] [place] [phone] May, Dysuria R30.0 [facility] [address] [place] [id number] [place] [phone] Mar, Acute cystitis without hemat uria N30.00 and Dysuria R30.0 [facility] [address] [place], [place] [address] [place] [phone] Feb, Right arm pain M79.601 [facility] [address] [place], [place] [address] [place] [phone] December, Acute nasopharyngitis (commo n cold) J00 [facility] [address] [place] [id number] Nov, Dental examination Z01.20 [facility] [address] [id number] Sep, Encounter for dental examina tion Z01.20 [facility] [address] [place] [phone] Jun, Lower abdominal pain R10.30 and Screening for STD sexually transmitted disease Z11.3 [facility] [address] [place], [place] [address] [place] [phone] May, [facility] [address] [place] [phone] May, Dysuria R30.0 ; Acute non-re current frontal sinusitis J01.10 and Acute cystitis with hematuria N30.01 [facility] [id number] [place] [address] [id number] Mar, Dental examination Z01.20 [facility] [address] [id number] [address] [place] [address] [phone] Oct, Encounter for dental examina tion Z01.20 IMMUNIZATIONS No Known Immunizations SOCIAL HISTORY Never Assessed REASON FOR VISIT Lab (walk-in) PLAN OF CARE VITAL SIGNS MEDICATIONS No Known Medications RESULTS No Results PROCEDURES Procedure Date Ordered Result Body Site LIPID PANEL November 16, 2017 COMPREHEN METABOLIC PANEL November 16, 2017 ASSAY THYROID STIM HORMONE November 16, 2017 COMPLETE CBC W/AUTO DIFF WBC November 16, 2017 VENIPUNCT, ROUTINE* November 16, 2017 ASSAY OF VITAMIN D November 16, 2017 INSTRUCTIONS MEDICATIONS ADMINISTERED No Known Medications MEDICAL (GENERAL) HISTORY Type Description Date Medical History HTN Surgical History Caesarean Surgical History Hysterectomy 2008 Surgical History Cholecystectomy 2010 Surgical History Sinus 2012 Hospitalization History Hospitalization for surgery only
--- OUTSIDE RECORDS SUMMARY | 2019-12-29 11:44 | XMS REPORT ---
Author Author Paula QUARLES Organization [facility] Address [address] [place] [address] Care Team Providers Care Historical Interpreter Name Role Phone PARVIN QUARLES Unavailable PROBLEMS Type Condition ICD9-CM Code ANX99-HF Code Onset Dates Condition S tatus SNOMED Code Problem Mixed stress and urge urinary incontinence N39.46 Active 359133321 Problem Seasonal allergic rhinitis due to pollen J30.1 Active 15968254 Problem Moderate episode of recurrent major depressive disorder F33.1 Active 254853920 ALLERGIES Substance Reaction Event Type Date Status Hydrocodone-Acetaminophen itching Drug Allergy Sep, Ac tive Fluarix Unknown Drug Allergy Sep, Active ENCOUNTERS Encounter Location Date Diagnosis [facility] [address] [address] Feb, [facility] [address] [address] December, Acute swimmer''s ear of both sides H60.333 [facility] [address] [address] Nov, [facility] [address] [address] Nov, Mixed stress and urge urinar y incontinence N39.46 [facility] [address] [place] [id number] [address] [place] [address] Nov, Moderate episode of recurren t major depressive disorder F33.1 ; Seasonal allergic rhinitis due to pollen J30.1 ; Overweight (BMI 25.0-29.9) E66.3 and Fatigue, unspecified type R53.83 [facility] [address] [address] Nov, Moderate episode of recurren t major depressive disorder F33.1 ; Acute non-recurrent maxillary sinusitis J01.00 ; Fatigue, unspecified type R53.83 and Dysuria R30.0 [facility] [address] [facility] [id number] [address] [place] [phone] Oct, [facility] [address] [place] [id number] [place] [phone] Sep, Moderate episode of recurren t major depressive disorder F33.1 ; Seasonal allergic rhinitis due to pollen J30.1 and Overweight (BMI 25.0-29.9) E66.3 [facility] [address] [facility] [id number] [place] [phone] Aug, [facility] [address] [facility] [id number] [address] [place] [phone] Aug, Myalgia M79.1 [facility] [address] [place] [id number] [place] [phone] Jul, Moderate episode of recurren t major depressive disorder F33.1 ; Acute non-recurrent frontal sinusitis J01.10 and Overweight (BMI 25.0-29.9) E66.3 [facility] [address] [place] [id number] [address] [place] [address] Jun, [facility] [address] [place] [id number] [place] [phone] Jun, Acute cystitis with hematuri a N30.01 [facility] [address] [place] [id number] [place] [phone] Jun, [facility] [address] [place] [id number] [place] [phone] 13 Jun, 2017 Acute cystitis with hematuri a N30.01 [facility] [address] [id number] [address] [place] [phone] 08 Jun, 2017 Dental examination Z01.20 [facility] [address] [place] [address] [address] May, Candidiasis of female genita leena B37.3 [facility] [address] [place] [address] May, Acute cystitis N30.00 [facility] [address] [place] [address] May, Dysuria R30.0 [facility] [address] [place] [address] Mar, Acute cystitis without hemat uria N30.00 and Dysuria R30.0 [facility] [address] [place] [address] Feb, Right arm pain M79.601 [facility] [address] [place] [phone] December, Acute nasopharyngitis (commo n cold) J00 [facility] [address] [id number] Nov, Dental examination Z01.20 [facility] [address] [id number] Sep, Encounter for dental examina tion Z01.20 [facility] [address] [place] [phone] Jun, Lower abdominal pain R10.30 and Screening for STD sexually transmitted disease Z11.3 [facility] [address] [place] [address] May, [facility] [address] [place] [phone] May, Dysuria R30.0 ; Acute non-re current frontal sinusitis J01.10 and Acute cystitis with hematuria N30.01 [facility] [address] [place] [id number] Mar, Dental examination Z01.20 [facility] [address] [facility] [id number] [address] [place] [id number] Oct, Encounter for dental examina tion Z01.20 IMMUNIZATIONS No Known Immunizations SOCIAL HISTORY Never Assessed REASON FOR VISIT Depression--tjanssenMA, --needing refills, wants to get medications from in hous e pharmacy. PLAN OF CARE Activity Details Follow Up 3 Months, prn Reason:CHM VITAL SIGNS Height 66 in 2017-10-03 Weight 160.8 lbs 2017-10-03 Temperature 98.5 degrees Fahrenheit 2017-10-03 Heart Rate 80 bpm 2017-10-03 Respiratory Rate 20 2017-10-03 BMI 25.95 kg/m2 2017-10-03 Blood pressure systolic 108 mmHg 2017-10-03 Blood pressure diastolic 70 mmHg 2017-10-03 MEDICATIONS Medication Instructions Dosage Frequency Start Date End Date Duration S tatus Fexofenadine HCl 60 MG Orally Twice a day 1 tablet as needed 12h Active Fluoxetine HCl 20 mg Orally Once a day 1 capsule in the morning 24h Sep, 30 day(s) Active Cyclobenzaprine HCl 5 mg Orally Three times a day PRn 1-2 tablet as needed Aug, Active Probiotic Daily Active Diflucan 150 MG Orally 1 tablet now and 1 tablet again in 7 days 1 tablet Jun, 10 days Not-Taking Spironolactone 25 MG Orally Twice a day 1 tablet 12h Active Multi Complete Active Estradiol Active RESULTS No Results PROCEDURES No Known procedures INSTRUCTIONS MEDICATIONS ADMINISTERED No Known Medications MEDICAL (GENERAL) HISTORY Type Description Date Medical History HTN Surgical History Caesarean Surgical History Hysterectomy 2008 Surgical History Cholecystectomy 2010 Surgical History Sinus 2013 Hospitalization History Hospitalization for surgery only
--- OUTSIDE RECORDS SUMMARY | 2019-12-29 11:44 | XMS REPORT ---
Author Author Paula QUARLES Organization [facility] Address [address] [place] [address] Care Team Providers Care Meat Apprentice Name Role Phone WILLAM PARVIN Unavailable PROBLEMS Type Condition ICD9-CM Code HDP63-OB Code Onset Dates Condition S tatus SNOMED Code Problem Mixed stress and urge urinary incontinence N39.46 Active 670793122 Problem Seasonal allergic rhinitis due to pollen J30.1 Active 19056299 Problem Moderate episode of recurrent major depressive disorder F33.1 Active 948426966 ALLERGIES Substance Reaction Event Type Date Status Hydrocodone-Acetaminophen itching Drug Allergy Nov, Ac tive Fluarix Unknown Drug Allergy Nov, Active ENCOUNTERS Encounter Location Date Diagnosis [place] [address] [place] [id number] [place] [phone] Feb, Moderate episode of recurren t major depressive disorder F33.1 and Seasonal allergic rhinitis due to pollen J30.1 [facility] [address] [place] [id number] [address] [place] [address] December, Acute swimmer''s ear of both sides H60.333 [place] [address] [place] [id number] [place] [phone] Nov, [facility] [address] [place] [id number] [place] [address] Nov, Mixed stress and urge urinar y incontinence N39.46 [place] [address] [place] [id number] [place] [phone] Nov, Moderate episode of recurren t major depressive disorder F33.1 ; Seasonal allergic rhinitis due to pollen J30.1 ; Overweight (BMI 25.0-29.9) E66.3 and Fatigue, unspecified type R53.83 [place] [address] [place] [id number] [place] [address] Nov, Moderate episode of recurren t major depressive disorder F33.1 ; Acute non-recurrent maxillary sinusitis J01.00 ; Fatigue, unspecified type R53.83 and Dysuria R30.0 [place] [address] [place] [id number] [place] [address] Oct, [place] [address] [address] Sep, Moderate episode of recurren t major depressive disorder F33.1 ; Seasonal allergic rhinitis due to pollen J30.1 and Overweight (BMI 25.0-29.9) E66.3 [facility] [place] [address] [address] Aug, Myalgia M79.1 [place] [address] [address] Jul, Moderate episode of recurren t major depressive disorder F33.1 ; Acute non-recurrent frontal sinusitis J01.10 and Overweight (BMI 25.0-29.9) E66.3 [place] [address] [address] 21 Jun, 2017 Acute cystitis with hematuri a N30.01 [place] [address] [place] [id number] [place] [address] Jun, [place] [address] [address] 13 Jun, 2017 Acute cystitis with hematuri a N30.01 [facility] [address] [id number] [address] [place] [phone] 08 Jun, 2017 Dental examination Z01.20 [place] [address] [place] [id number] [place] [address] 17 May, 2017 Candidiasis of female genita leena B37.3 [facility] [address] [place] [id number] [place] [address] May, Acute cystitis N30.00 [facility] [address] [place] [phone] May, Dysuria R30.0 [facility] [address] [place], [place] [address] [place] [address] Mar, Acute cystitis without hemat uria N30.00 and Dysuria R30.0 [facility] [address] [place] [address] [place] [phone] Feb, Right arm pain M79.601 [facility] [address] [place] [address] December, Acute nasopharyngitis (commo n cold) J00 [facility] [address] [place] [phone] Nov, Dental examination Z01.20 [facility] [address] [id number] Sep, Encounter for dental examina tion Z01.20 [facility] [address] [place] [phone] Jun, Lower abdominal pain R10.30 and Screening for STD sexually transmitted disease Z11.3 [facility] [address] [place] [phone] May, [facility] [address] [place] [address] May, Dysuria R30.0 ; Acute non-re current frontal sinusitis J01.10 and Acute cystitis with hematuria N30.01 [facility] [address] [id number] [address] [place] [phone] Mar, Dental examination Z01.20 [facility] [address] [id number] [address] [place] [phone] Oct, Encounter for dental examina tion Z01.20 IMMUNIZATIONS No Known Immunizations SOCIAL HISTORY Never Assessed REASON FOR VISIT sinus congestion-AHarrymanRN, Possible UTI, dysuria, foul odor PLAN OF CARE Activity Details Follow Up 3 Months, prn Reason: VITAL SIGNS Height 66 in 2017-11-15 Weight 164.7 lbs 2017-11-15 Temperature 98.9 degrees Fahrenheit 2017-11-15 Heart Rate 62 bpm 2017-11-15 Respiratory Rate 18 2017-11-15 BMI 26.58 kg/m2 2017-11-15 Blood pressure systolic 128 mmHg 2017-11-15 Blood pressure diastolic 82 mmHg 2017-11-15 MEDICATIONS Medication Instructions Dosage Frequency Start Date End Date Duration S tatus Multi Complete Active Cyclobenzaprine HCl 5 mg Orally Three times a day PRn 1-2 tablet as needed Aug, Active Probiotic Daily Active Fluconazole 150 MG Orally Once a day 1 tablet today and december repe at in 7 days 24h Nov, Nov, 2 days Active Estradiol Active Fluoxetine 10 mg Orally Once a day 1 capsule in the morning 24h Nov, 30 day(s) Active Fexofenadine HCl 60 MG Orally Twice a day 1 tablet as needed 12h Active Spironolactone 25 MG Orally Twice a day 1 tablet 12h Jul, 90 days Active Amoxicillin-Pot Clavulanate 875-125 MG Orally every 12 hrs 1 tablet 12h Nov, Nov, 10 day(s) Active RESULTS Name Result Date Reference Range UA LONG DIP (IN HOUSE) 2017-11-15 Lot # [id number] Exp date 05/2018 Clarity Clear Color Yellow Odor Yes GLU Negative ZULEMA Negative KET Negative SG 1.020 BLO Negative pH 7.0 Protein Negative URO 0.2 NIT Negative HERNAN Negative Lot # Exp date PROCEDURES Procedure Date Ordered Result Body Site URINALYSIS, AUTO, W/O SCOPE November 15, 2017 INSTRUCTIONS MEDICATIONS ADMINISTERED No Known Medications MEDICAL (GENERAL) HISTORY Type Description Date Medical History HTN Surgical History Caesarean 1998/2001 Surgical History Hysterectomy 2008 Surgical History Cholecystectomy 2010 Surgical History Sinus 2013 Hospitalization History Hospitalization for surgery only
--- OUTSIDE RECORDS SUMMARY | 2019-12-29 11:44 | XMS REPORT ---
Author Author Paula Cowan Organization [facility] Address [address] [place] [address] Care Team Providers Care Pediatric Physician Assistant Name Role Phone NICOLE Cowan Unavailable PROBLEMS Type Condition ICD9-CM Code OUV07-SE Code Onset Dates Condition S tatus SNOMED Code Problem Mixed stress and urge urinary incontinence N39.46 Active 007870349 Problem Seasonal allergic rhinitis due to pollen J30.1 Active 31797046 Problem Moderate episode of recurrent major depressive disorder F33.1 Active 511447063 ALLERGIES No Known Allergies ENCOUNTERS Encounter Location Date Diagnosis [place] [id number] [place] [phone] Nov, [place] [address] [place] [id number] [address] [place] [phone] Nov, Mixed stress and urge urinar y incontinence N39.46 [place] [address] [place] [id number] [address] [place] [phone] Nov, Moderate episode of recurren t major depressive disorder F33.1 ; Seasonal allergic rhinitis due to pollen J30.1 ; Overweight (BMI 25.0-29.9) E66.3 and Fatigue, unspecified type R53.83 [place] [address] [place] [id number] [address] [place] [phone] 10 Nov, 2017 Moderate episode of recurren t major depressive disorder F33.1 ; Acute non-recurrent maxillary sinusitis J01.00 ; Fatigue, unspecified type R53.83 and Dysuria R30.0 [place] [address] [place] [id number] [place] [phone] Oct, [place] [address] [place] [id number] [place] [phone] Sep, Moderate episode of recurren t major depressive disorder F33.1 ; Seasonal allergic rhinitis due to pollen J30.1 and Overweight (BMI 25.0-29.9) E66.3 [place] [address] [address] Aug, [facility] [address] [address] Aug, Myalgia M79.1 [place] [address] [address] Jul, Moderate episode of recurren t major depressive disorder F33.1 ; Acute non-recurrent frontal sinusitis J01.10 and Overweight (BMI 25.0-29.9) E66.3 [place] [address] [address] Jun, [place] [address] [address] Jun, Acute cystitis with hematuri a N30.[address] [address] Jun, [place] [address] [address] Jun, Acute cystitis with hematuri a N30.01 [facility] [address] [place] [id number] [place] [id number] 08 Jun, 2017 Dental examination Z01.[address] [address] 17 May, 2017 Candidiasis of female genita leena B37.3 [facility] [address] [address] May, Acute cystitis N30.00 [facility] [address] [address] May, Dysuria R30.0 [facility] [address] [facility] [id number] [address] [place] [phone] Mar, Acute cystitis without hemat uria N30.00 and Dysuria R30.0 [facility] [address] [facility] [id number] [address] [place] [address] Feb, Right arm pain M79.601 [facility] [address] [place], [place] [id number] [place] [phone] December, Acute nasopharyngitis (commo n cold) J00 [facility] [address] [place] [phone] Nov, Dental examination Z01.20 [facility] [address] [place] [phone] Sep, Encounter for dental examina tion Z01.20 [facility] [address] [place] [address] [place] [phone] Jun, Lower abdominal pain R10.30 and Screening for STD sexually transmitted disease Z11.3 [facility] [address] [place] [phone] May, [facility] [address] [place] [address] [place] [phone] May, Dysuria R30.0 ; Acute non-re current frontal sinusitis J01.10 and Acute cystitis with hematuria N30.01 [facility] [address] [id number] [address] [place] [phone] Mar, Dental examination Z01.20 [facility] [address] [place] [phone] Oct, Encounter for dental examina tion Z01.20 IMMUNIZATIONS No Known Immunizations SOCIAL HISTORY Never Assessed REASON FOR VISIT UTI symptoms started a few weeks ago- took some leftover abx and symptoms went a way- symptoms returned yesterday JStrasserRN PLAN OF CARE Activity Details Follow Up prn Reason: VITAL SIGNS Height 66 in 2017-05-19 Weight 161 lbs 2017-05-19 Temperature 98.4 degrees Fahrenheit 2017-05-19 Heart Rate 76 bpm 2017-05-19 Respiratory Rate 20 2017-05-19 BMI 25.98 kg/m2 2017-05-19 Blood pressure systolic 100 mmHg 2017-05-19 Blood pressure diastolic 62 mmHg 2017-05-19 MEDICATIONS Medication Instructions Dosage Frequency Start Date End Date Duration S sonam Fexofenadine HCl 60 MG Orally Twice a day 1 tablet as needed 12h Active Estradiol Active Multi Complete Active Probiotic Daily Active Spironolactone 25 MG Orally Twice a day 1 tablet 12h Active RESULTS Name Result Date Reference Range UA LONG DIP (IN HOUSE) 2017-05-19 Lot # [id number] Exp date 2018-06-07 Clarity clear Color yellow Odor none GLU negative ZULEMA negative KET negative SG >=1.030 BLO trace-intact pH 6.5 Protein negative URO 0.2 NIT negative HERNAN trace Lot # [id number] Exp date November 2017 CULTURE, URINE 2017-05-19 Urine Culture, Routine Final report Result 1 Escherichia coli Antimicrobial Susceptibility PROCEDURES Procedure Date Ordered Result Body Site URINALYSIS, AUTO, W/O SCOPE May 19, 2017 URINE CULTURE/COLONY COUNT May 19, 2017 INSTRUCTIONS MEDICATIONS ADMINISTERED No Known Medications MEDICAL (GENERAL) HISTORY Type Description Date Medical History HTN Surgical History Caesarean 1998/2001 Surgical History Hysterectomy 2008 Surgical History Cholecystectomy 2010 Surgical History Sinus 2013 Hospitalization History Hospitalization for surgery only
--- OUTSIDE RECORDS SUMMARY | 2019-12-29 11:44 | XMS REPORT ---
Author Author Paula QUARLES Organization [facility] Address [address] [place] [address] Care Team Providers Care Emergency Department Physician Name Role Phone WILLAM PARVIN Unavailable PROBLEMS Type Condition ICD9-CM Code VSU90-DD Code Onset Dates Condition S tatus SNOMED Code Problem Mixed stress and urge urinary incontinence N39.46 Active 957606228 Problem Seasonal allergic rhinitis due to pollen J30.1 Active 35232365 Problem Moderate episode of recurrent major depressive disorder F33.1 Active 853888269 ALLERGIES Substance Reaction Event Type Date Status Hydrocodone-Acetaminophen itching Drug Allergy Jul, Ac tive Fluarix Unknown Drug Allergy Jul, Active ENCOUNTERS Encounter Location Date Diagnosis [facility] [id number] [place] [phone] Feb, [facility] [address] [phone] December, Acute swimmer''s ear of both sides H60.333 [facility] [id number] [place] [phone] Nov, [facility] [id number] [place] [phone] Nov, Mixed stress and urge urinar y incontinence N39.46 [facility] [id number] [place] [phone] Nov, Moderate episode of recurren t major depressive disorder F33.1 ; Seasonal allergic rhinitis due to pollen J30.1 ; Overweight (BMI 25.0-29.9) E66.3 and Fatigue, unspecified type R53.83 [facility] [id number] [place] [phone] Nov, Moderate episode of recurren t major depressive disorder F33.1 ; Acute non-recurrent maxillary sinusitis J01.00 ; Fatigue, unspecified type R53.[address] [facility] [id number] [place] [phone] Oct, [facility] [id number] [place] [phone] Sep, Moderate episode of recurren t major depressive disorder F33.1 ; Seasonal allergic rhinitis due to pollen J30.1 and Overweight (BMI 25.0-29.9) E66.3 [place] [id number] [place] [phone] Aug, [facility] [id number] [place] [phone] Aug, Myalgia M79.1 [facility] [address] [phone] Jul, Moderate episode of recurren t major depressive disorder F33.1 ; Acute non-recurrent frontal sinusitis J01.10 and Overweight (BMI 25.0-29.9) E66.3 [place] [id number] [place] [phone] Jun, [place] [id number] [place] [phone] Jun, Acute cystitis with hematuri a N30.01 [facility] [id number] [place] [phone] Jun, [facility] [id number] [place] [phone] 13 Jun, 2017 Acute cystitis with hematuri a N30.[address] [facility] [address] [id number] [address] [place] [phone] Jun, [address] [facility] [id number] [place] [phone] May, Candidiasis of female genita leena B37.3 [facility] [address] [place], [place] [address] [place] [phone] May, Acute cystitis N30.00 [facility] [address] [place], [place] [address] [place] [phone] May, Dysuria R30.0 [facility] [address] [place], [place] [address] [place] [phone] Mar, Acute cystitis without hemat uria N30.00 and Dysuria R30.0 [facility] [address] [place] [address] [place] [phone] Feb, Right arm pain M79.601 [facility] [address] [place] [address] [place] [phone] December, Acute nasopharyngitis (commo n cold) J00 [facility] [address] [id number] Nov, Dental examination Z01.[address] [facility] [address] [phone] Sep, Encounter for dental examina tion Z01.20 [facility] [address] [place] [address] [place] [phone] Jun, Lower abdominal pain R10.30 and Screening for STD sexually transmitted disease Z11.3 [facility] [address] [place] [id number] [address] [place] [phone] May, [facility] [address] [place] [phone] May, Dysuria R30.0 ; Acute non-re current frontal sinusitis J01.10 and Acute cystitis with hematuria N30.[address] [facility] [id number] [place] [phone] Mar, Dental examination Z01.20 [facility] [address] [id number] [address] [place] [id number] Oct, Encounter for dental examina tion Z01.20 IMMUNIZATIONS No Known Immunizations SOCIAL HISTORY Never Assessed REASON FOR VISIT Establish Care: Transitioning from Dr. Topete in [place], has not seen in sev eral years. , Having ongoing problems with UTI's, would like to discuss referral to urologist. aden altamirano PLAN OF CARE Activity Details Follow Up 4 Weeks Reason:follow up dep ression VITAL SIGNS Height 66 in 2017-08-04 Weight 166.1 lbs 2017-08-04 Temperature 98 degrees Fahrenheit 2017-08-04 Heart Rate 72 bpm 2017-08-04 Respiratory Rate 18 2017-08-04 BMI 26.81 kg/m2 2017-08-04 Blood pressure systolic 102 mmHg 2017-08-04 Blood pressure diastolic 62 mmHg 2017-08-04 MEDICATIONS Medication Instructions Dosage Frequency Start Date End Date Duration S tatus Estradiol Active Probiotic Daily Active Augmentin 875-125 MG Orally every 12 hrs 1 tablet 12h Jul, 2 017 7 Aug, 2017 10 day(s) Active Multi Complete Active Diflucan 150 MG Orally Once a day 1 tablet today and may repeat in 7 days 24h Jul, Jul, 2 days Active Fexofenadine HCl 60 MG Orally Twice a day 1 tablet as needed 12h Active Diflucan 150 MG Orally 1 tablet now and 1 tablet again in 7 days 1 tablet 13 Jun, 2017 10 days Not-Taking Spironolactone 25 MG Orally Twice a day 1 tablet 12h Active Prozac 10 MG Orally Once a day 1 capsule in the morning 24h 28 D 2016 30 day(s) Active RESULTS No Results PROCEDURES No Known procedures INSTRUCTIONS MEDICATIONS ADMINISTERED No Known Medications MEDICAL (GENERAL) HISTORY Type Description Date Medical History HTN Surgical History Caesarean 1998/2001 Surgical History Hysterectomy 2008 Surgical History Cholecystectomy 2010 Surgical History Sinus 2013 Hospitalization History Hospitalization for surgery only
--- OUTSIDE RECORDS SUMMARY | 2019-12-29 11:44 | XMS REPORT ---
Author Author Paula MAJANO [facility] eClinicalWorks Address Unknown Phone Unavailable Care Team Providers Care Press Operator Name Role Phone JANAY MAJANO CP Unavailable Allergies, Adverse Reactions, Alerts Substance Reaction Event Type N.K.D.A. Info Not Available Non Drug Allergy Problems Problem Type Condition Code Onset Dates Condition Statu s Problem Encounter for dental examination Z01.20 Active Assessment Dental examination Z01.20 Active Problem Dental examination Z01.20 Active Medications Medication Code System Code Instructions Start Date End Date Status Dosage Estradiol [facility] [id number] not defi leonel Probiotic Daily [facility] [phone] not defined Multi Complete [facility] [id number] not d efined Procedures Procedure Coding System Code Date PROPHYLAXIS - ADULT CPT-4 D1110 Apr 01, 2016 Vital Signs Date/Time: Apr 01, 2016 Blood Pressure Diastolic 72 mmHg Blood Pressure Systolic 102 mmHg Results No Known Results Summary Purpose eClinicalWorks Submission
--- OUTSIDE RECORDS SUMMARY | 2019-12-29 11:44 | XMS REPORT ---
Author Paula Haji [facility] eClinicalWorks Address Unknown Phone Unavailable Care Team Providers Care Manager Management Name Role Phone JENNIFER WESTFALL Unavailable Allergies No Known Allergies Problems Problem Type Condition Code Onset Dates Condition Statu s Problem Encounter for dental examination Z01.20 Active Problem Dental examination Z01.20 Active Medications Medication Code System Code Instructions Start Date End Date Status Dosage Ceftin [facility] [address]-53 250 MG Orally Twice a day May 29, 2016 Jun 08, 2016 1 tablet Results No Known Results Summary Purpose eClinicalWorks Submission
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
--- NOTE | 2019-12-29 11:50 | NUR ---
[place] [employer] department notified at this time per patient request
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
--- NOTE | 2019-12-29 12:10 | NUR ---
[place] [employer] here to speak with patient at this time
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
[2019-12-29] MEDS ORDERED: TRAM-42 PO (12:54)
[2019-12-29] MEDS ORDERED: AMOX-358 PO (12:54)
[2019-12-29 13:04] VITALS: BP 120/86
== END 2019-12-29 13:04 | disposition home or self-care (01) ==
LOC: EDUNIT# 11:38 → ER 11:39
DX: S01.21XA Laceration without foreign body of nose, initial encounter (principal); Y04.8XXA Assault by other bodily force, initial encounter
CPT/HCPCS: 70450

== ENCOUNTER 2020-01-03 10:40 | Emergency (ER) | payer OTHER ==
[~2020-01-03] VITALS: Ht 168 cm; Wt 71.0 kg
[~2020-01-03 10:40] MED LIST changes: +AMOX-358 PO; +TRAM-42 PO
[2020-01-03 11:01] VITALS: BP 109/74
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
== END 2020-01-03 11:00 | disposition home or self-care (01) ==
LOC: EDUNIT# 10:40 → ER 10:41
DX: S01.21XD Laceration without foreign body of nose, subsequent encounter (principal); X58.XXXD Exposure to other specified factors, subsequent encounter

== ENCOUNTER 2022-02-22 14:10 | Emergency (ER) | payer OTHER ==
[~2022-02-22] VITALS: Ht 170 cm; Wt 73.0 kg
[2022-02-22] MEDS ORDERED: ASPIRIN 81 MG CHEW (CHILDREN'S ASA) PO ONE (14:15)
--- NOTE | 2022-02-22 14:26 | ED Chest Pain ---
General Chief Complaint: Chest Pain Stated Complaint: CP Source: patient Exam Limitations: no limitations (CHRIST AMADOR APRN) History of Present Illness Date Seen by Provider: Feb 22, 2022 Time Seen by Provider: 14:22 Initial Comments To ER with central chest pain described as pressure. She also has some pain that radiates up to the right shoulder as a pressure sensation. She has also had some intermittent sharp right-sided chest pain. No shortness of breath. She has been having some issues with chest pain since September of this year following a colonoscopy. She has seen Dr. Oconnor at [facility] and has had an EKG as well as a stress test done which were normal. She has follow-up with him scheduled in the next week. She just took off a Holter monitor that she had worn for 2 weeks. This particular episode of pain has been constant since yesterday. She does report some increased stress related to a break-up with her significant other. She does not have hypertension or hyperlipidemia or diabetes. She is a non-smoker but she has a family history of early coronary artery disease. Timing/Duration: changing over time Severity/Quality: moderate, pressure Location: central Radiation: no radiation Activities at Onset: none Prior CP/Workup: stress test ASA po BRAILLE OPERATOR: No NTG SL BRAILLE OPERATOR: No Associated Symptoms: denies symptoms (CHRITS AMADOR APRN) Allergies and Home Medications Allergies Coded Allergies: No Known Allergies (Verified Allergy, Unknown, 10/12/06) Patient Home Medication List Home Medication List Reviewed: Yes (CHRIST AMADOR APRN) Amoxicillin/Clavulanate K (Augmentin 500-125 Tablet) 1 Each Tablet, 1 EACH PO BID, (Reported) Entered as Reported by: QUINCY ANDINO on 08/05/10 1433 Amoxicillin/Potassium Clav (Augmentin 875-125 Tablet) 1 Each Tablet, 1 EACH PO BID Prescribed by: CHRIST AMADOR on 12/29/19 1254 Escitalopram Oxalate (Lexapro) 10 Mg Tablet, 1 EACH PO DAILY, (Reported) Entered as Reported by: MIRYAM RUELAS on 07/28/10 0819 Hydrocodone Bit/Acetaminophen (Vicodin 5-500 Tablet) 1 Each Tablet, 1-2 EACH PO Q4HR PRN, (Reported) Entered as Reported by: QUINCY ANDINO on 08/05/10 1433 Prednisone (Prednisone) 20 Mg Tab, 20 MG PO DAILY, (Reported) Entered as Reported by: MIRYAM RUELAS on 07/28/10 0819 Prednisone (Prednisone) 20 Mg Tab, 20 MG PO DIRECTED, (Reported) Entered as Reported by: QUINCY ANDINO on 08/05/10 1433 Tramadol HCl (Ultram) 50 Mg Tablet, 50 MG PO Q6H PRN for NAUSEA/VOMITING Prescribed by: CHRIST MAADOR on 12/29/19 1254 [Paula] , 1 TAB PO DAILY, (Reported) Entered as Reported by: MIRYAM RUELAS on 07/28/10818 Review of Systems Review of Systems Constitutional: see HPI EENTM: No Symptoms Reported Respiratory: No Symptoms Reported Cardiovascular: See HPI, Chest Pain Gastrointestinal: No Symptoms Reported Genitourinary: No Symptoms Reported Musculoskeletal: no symptoms reported Skin: no symptoms reported Psychiatric/Neurological: See HPI (inCreased stress lately) Endocrine: No Symptoms Reported Hematologic/Lymphatic: No Symptoms Reported (CHRIST AMADOR APRN) Past Eeitcuc-Qsgojl-Apeepx Hx Patient Social History Tobacco Use?: No Substance use?: No Alcohol Use?: No Pt feels they are or have been: No (CHRIST AMADOR APRN) Immunizations Up To Date First/Initial COVID19 Vaccinat: 2020 Second COVID19 Vaccination Rickey: 2020 COVID19 Vaccine Contact Lens Blocker: moderna (CHRIST AMADOR APRN) Past Medical History Surgery/Hospitalization HX: HX C/P Respiratory: No Cardiac: No Neurological: No Reproductive Disorders: No Sexually Transmitted Disease: No Gastrointestinal: No Musculoskeletal: No Endocrine: No Blood Disorders: No (CHRIST AMADOR APRN) Physical Exam Vital Signs Vital Signs - First Documented 02/22/22 02/22/22 14:10 15:27 Pulse 76 Resp 14 B/P (MAP) 109/87 (94) Pulse Ox 97 O2 Delivery Room Air (JOIE IRVIN MD) Vital Signs Capillary Refill : (CHRIST AMADOR APRN) Height, Weight, BMI Height: '" Weight: lbs. oz. kg; 25.00 BMI Method:Stated General Appearance: No Apparent Distress, WD/WN HEENT: PERRL/EOMI, TMs Normal Neck: Full Range of Motion, Normal Inspection Respiratory: No Accessory Muscle Use, No Respiratory Distress Cardiovascular: Regular Rate, Rhythm, Normal Peripheral Pulses Gastrointestinal: Normal Bowel Sounds, Non Tender, Soft Extremity: Normal Capillary Refill, Normal Inspection Neurologic/Psychiatric: Alert, Oriented x3 Skin: Normal Color, Warm/Dry (CHRIST AMADOR APRN) Procedures/Interventions Suture Size: 6-0 (CHRIST AMADOR APRN) Progress/Results/Core Measures Results/Orders Lab Results Laboratory Tests Test 02/22/22 14:24 Range/Units White Blood Count 7.4 4.3-11.0 10^3/uL Red Blood Count 4.38 3.80-5.11 10^6/uL Hemoglobin 14.1 11.5-16.0 g/dL Hematocrit 40 35-52 % Mean Corpuscular Volume 91 80-99 fL Mean Corpuscular Hemoglobin 32 25-34 pg Mean Corpuscular Hemoglobin Concent 35 32-36 g/dL Red Cell Distribution Width 11.9 10.0-14.5 % Platelet Count 246 130-400 10^3/uL Mean Platelet Volume 9.7 9.0-12.2 fL Immature Granulocyte % (Auto) 0 % Neutrophils (%) (Auto) 62 42-75 % Lymphocytes (%) (Auto) 30 12-44 % Monocytes (%) (Auto) 7 0-12 % Eosinophils (%) (Auto) 2 0-10 % Basophils (%) (Auto) 1 0-10 % Neutrophils # (Auto) 4.5 1.8-7.8 10^3/uL Lymphocytes # (Auto) 2.2 1.0-4.0 10^3/uL Monocytes # (Auto) 0.5 0.0-1.0 10^3/uL Eosinophils # (Auto) 0.1 0.0-0.3 10^3/uL Basophils # (Auto) 0.1 0.0-0.1 10^3/uL Immature Granulocyte # (Auto) 0.0 0.0-0.1 10^3/uL Prothrombin Time 13.5 12.2-14.7 SEC INR Comment 1.0 0.8-1.4 Activated Partial Thromboplast Time 29 24-35 SEC D-Dimer < 0.27 0.00-0.49 UG/ML Sodium Level 138 135-145 MMOL/L Potassium Level 4.0 3.6-5.0 MMOL/L Chloride Level 106 98-107 MMOL/L Carbon Dioxide Level 21 21-32 MMOL/L Anion Gap 11 5-14 MMOL/L Blood Urea Nitrogen 15 7-18 MG/DL Creatinine 0.82 0.60-1.30 MG/DL Estimat Glomerular Filtration Rate 89 BUN/Creatinine Ratio 18 Glucose Level 107 H 70-105 MG/DL Calcium Level 9.2 8.5-10.1 MG/DL Corrected Calcium 8.9 8.5-10.1 MG/DL Magnesium Level 2.1 1.6-2.4 MG/DL Total Bilirubin 1.3 H 0.1-1.0 MG/DL Aspartate Amino Transf (AST/SGOT) 25 5-34 U/L Alanine Aminotransferase (ALT/SGPT) 23 0-55 U/L Alkaline Phosphatase 45 40-136 U/L Myoglobin 26.5 10.0-92.0 NG/ML Troponin I < 0.028 <0.028 NG/ML B-Type Natriuretic Peptide < 10.0 <100.0 PG/ML Total Protein 7.0 6.4-8.2 GM/DL Albumin 4.4 3.2-4.5 GM/DL (JOIE IRVIN MD) Vital Signs/I&O 02/22/22 02/22/22 14:10 15:27 Pulse 76 81 Resp 14 16 B/P (MAP) 109/87 (94) 106/75 Pulse Ox 97 98 O2 Delivery Room Air (JOIE IRVIN MD) Departure Communication (Admissions) NAME: DMITRIY GAUTAM [facility] REC#: [id number] PT STATUS: REG ER : 1975 PHYSICIAN: CHRIST AMADOR APRN ADMIT DATE: 02/22/22/ER Draft Date of Exam:02/22/22 CHEST 1 VIEW, AP/PA ONLY INDICATION: Chest pain. TECHNIQUE: Frontal chest obtained at 2:38 PM. FINDINGS: The heart and mediastinal silhouette are normal in appearance. The lungs are clear. There is no pneumothorax or pleural fluid. IMPRESSION: Negative chest. Dictated on workstation # [id number] Dict: 02/22/22 1447 Trans: 02/22/22 1452 [id number] Interpreted by: IMER DELUCA MD Electronically signed by: EKG shows sinus rhythm at 75 normal intervals no ectopy no ST segment depression or elevation (CHRIST AMADOR APRN) Impression Primary Impression: Chest pain Disposition: 01 HOME, SELF-CARE Condition: Stable Departure-Patient Inst. Decision time for Depature: 15:15 (CHRIST AMADOR APRN) Referrals: [facility] [place] Primary Care Physician BRAYAN YANES APRN (Family) Primary Care Physician Patient Instructions: Chest Pain Add. Discharge Instructions: 1. Return to ER for any concerns 2. 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 All discharge instructions reviewed with patient and/or family. Voiced understanding. ATTENDING PHYSICIAN NOTE: I was physically present as attending physician in the emergency department during the care of this patient, but I was not directly involved in the decision making or delivery of care for this patient. (JOIE IRVIN MD) CHRIST AMADOR APRN Feb 22, 2022 14:26 JOIE IRVIN MD Feb 24, 2022 06:49
[2022-02-22 14:32] LABS: BASOPHILS # (AUTO) 0.1 10^3/uL (0.0-0.1); BASOPHILS % (AUTO) 1 % (0-10); EOSINOPHILS # (AUTO) 0.1 10^3/uL (0.0-0.3); EOSINOPHILS % (AUTO) 2 % (0-10); HEMATOCRIT 40 % (35-52); HEMOGLOBIN 14.1 g/dL (11.5-16.0); LYMPHOCYTES # (AUTO) 2.2 10^3/uL (1.0-4.0); LYMPHOCYTES % (AUTO) 30 % (12-44); MEAN CORPUSCULAR HEMOGLOBIN 32 pg (25-34); MEAN CORPUSCULAR HGB CONC 35 g/dL (32-36); MEAN CORPUSCULAR VOLUME 91 fL (80-99); MEAN PLATELET VOLUME 9.7 fL (9.0-12.2); MONOCYTES # (AUTO) 0.5 10^3/uL (0.0-1.0); MONOCYTES % (AUTO) 7 % (0-12); NEUTROPHILS # (AUTO) 4.5 10^3/uL (1.8-7.8); NEUTROPHILS % (AUTO) 62 % (42-75); PLATELET COUNT 246 10^3/uL (130-400); WHITE BLOOD COUNT 7.4 10^3/uL (4.3-11.0)
[2022-02-22 14:52] LABS: ALBUMIN 4.4 GM/DL (3.2-4.5); PROTHROMBIN TIME PATIENT 13.5 SEC (12.2-14.7)
--- NOTE | 2022-02-22 14:52 | Diagnostic Imaging Report ---
INDICATION: Chest pain. TECHNIQUE: Frontal chest obtained at 2:38 PM. FINDINGS: The heart and mediastinal silhouette are normal in appearance. The lungs are clear. There is no pneumothorax or pleural fluid. IMPRESSION: Negative chest. Dictated by: Dictated on workstation # [id number]
[2022-02-22 14:54] LABS: CALCIUM 9.2 MG/DL (8.5-10.1)
[2022-02-22 14:57] LABS: BILIRUBIN,TOTAL 1.3 MG/DL (0.1-1.0)
[2022-02-22 14:59] LABS: CREATININE SERUM 0.82 MG/DL (0.60-1.30)
[2022-02-22 15:02] LABS: MAGNESIUM 2.1 MG/DL (1.6-2.4)
[2022-02-22 15:27] VITALS: BP 106/75
== END 2022-02-22 15:27 | disposition home or self-care (01) ==
LOC: EDUNIT# 14:10 → ER 14:12
DX: R07.89 Other chest pain (principal)
CPT/HCPCS: 36415; 71045; 80053; 83735; 83874; 83880; 84484; 85025; 85379; 85610; 85730; 93005; 93041